=== PATIENT | female | born 1965 | race African-American/Black ===

== ENCOUNTER 2016-08-06 11:16 | Observation (INO) | payer BC ==
[2016-08-06] MEDS ORDERED: ASPIRIN 81 MG TABLET, CHEWABLE PO ONE (11:33)
--- NOTE | 2016-08-06 11:54 | ER Document Report ---
ED Medical Screen (RME) - General Chief Complaint: Shortness Of Breath Stated Complaint: SHORTNESS OF BREATH Time Seen by Provider: 08/06/16 11:44 Mode of Arrival: Ambulatory Information source: Patient Notes: This is a 51-year-old -[place] female with a past medical history significant for diabetes, hypertension, CHF, fibromyalgia who presents with shortness of breath. She states that she felt well upon awakening this morning but at about 9:00 while at work she felt her "heart racing" and felt short of breath. She denies any chest pain. She continues to feel her heart "racing" and still feels short of breath with exertion or with speaking. She states this feels somewhat similar to her prior episodes of CHF. I have greeted and performed a rapid initial assessment of this patient. A comprehensive ED assessment and evaluation of the patient, analysis of test results and completion of the medical decision making process will be conducted by additional ED providers. TRAVEL OUTSIDE OF THE [place] IN LAST 30 DAYS: No - Related Data Allergies/Adverse Reactions: No Known Allergies Allergy (Verified 08/06/16 11:35) Past Medical History - Past Medical History Cardiac Medical History: Denies: Hx Coronary Artery Disease, Hx Heart Attack, Hx Hypertension Pulmonary Medical History: Denies: Hx Asthma, Hx Bronchitis, Hx COPD, Hx Pneumonia Neurological Medical History: Denies: Hx Cerebrovascular Accident, Hx Seizures Renal/ Medical History: Denies: Hx Peritoneal Dialysis Musculoskeltal Medical History: Reports Hx Arthritis - knee Past Surgical History: Denies: Hx Hysterectomy - Immunizations Hx Diphtheria, Pertussis, Tetanus Vaccination: No Physical Exam - Vital signs Vitals: Temp Pulse Resp BP Pulse Ox 97.4 F 120 H 20 120/55 L 97 08/06/16 11:33 08/06/16 11:33 08/06/16 11:33 08/06/16 11:33 08/06/16 11:33 - General General appearance: Appears well In distress: None Notes: Mild conversational dyspnea - Respiratory Respiratory status: No respiratory distress. No: Tachypnea Breath sounds: Normal. No: Rales, Rhonchi, Wheezing - Cardiovascular Rhythm: Irregularly irregular Heart sounds: S1 appreciated, S2 appreciated Murmur: No Course - Vital Signs Vital signs: Temp Pulse Resp BP Pulse Ox 97.4 F 120 H 20 120/55 L 97 08/06/16 11:33 08/06/16 11:33 08/06/16 11:33 08/06/16 11:33 08/06/16 11:33
[2016-08-06 12:16] LABS: ABSOLUTE BASOPHILS # (AUTO) 0.1 10^3/uL (0.0-0.2); ABSOLUTE EOSINOPHILS # (AUTO) 0.2 10^3/uL (0.0-0.6); ABSOLUTE LYMPHOCYTES (AUTO) 3.3 10^3/uL (0.5-4.7); ABSOLUTE MONOCYTES (AUTO) 0.6 10^3/uL (0.1-1.4); ABSOLUTE NEUT (AUTO) 5.2 10^3/uL (1.7-8.2); EOSINOPHILS % (AUTO) 2.4 % (0-6); HEMOGLOBIN 13.1 g/dL (12.0-15.5); HGB HCT DIFFERENCE 0.3; LYMPHOCYTES % (AUTO) 35.1 % (13-45); MEAN CORPUSCULAR HEMOGLOBIN 30.4 pg (27.0-33.4); MEAN CORPUSCULAR HGB CONC 33.6 g/dL (32.0-36.0); MEAN CORPUSCULAR VOLUME 91 fl (80-97); MONOCYTES % (AUTO) 6.7 % (3-13); RED BLOOD COUNT 4.31 10^6/uL (3.72-5.28); RED CELL DISTRIBUTION WIDTH 14.4 % (11.5-14.0); SEGMENTED NEUTROPHILS % (AUTO) 54.8 % (42-78); WHITE BLOOD COUNT 9.4 10^3/uL (4.0-10.5)
[2016-08-06 12:28] LABS: APPEARANCE,URINE SLIGHTLY-CLOUDY; BILIRUBIN,URINE NEGATIVE (NEGATIVE); GLUCOSE, URINE NEGATIVE (NEGATIVE); KETONES,URINE NEGATIVE (NEGATIVE); LEUKOCYTE ESTERASE,URINE NEGATIVE (NEGATIVE); NITRITE,URINE NEGATIVE (NEGATIVE); PROTEIN,URINE NEGATIVE (NEGATIVE); URINE SPECIFIC GRAVITY 1.009; UROBILINOGEN,URINE NEGATIVE mg/dL (<2.0)
[2016-08-06 12:32] LABS: ALANINE AMINOTRANSFERASE 24 U/L (9-52); ALBUMIN 3.7 g/dL (3.5-5.0); ALKALINE PHOSPHATASE 72 U/L (38-126); ANION GAP 9 (5-19); ASPARTATE AMINO TRANSFERASE 19 U/L (14-36); BILIRUBIN,DIRECT 0.3 mg/dL (0.0-0.4); BILIRUBIN,TOTAL 0.5 mg/dL (0.2-1.3); BLOOD UREA NITROGEN 14 mg/dL (7-20); CALCIUM 9.6 mg/dL (8.4-10.2); CARBON DIOXIDE 30 mmol/L (22-30); CHLORIDE 102 mmol/L (98-107); CREATINE KINASE 101 U/L (30-135); CREATININE RESULT 0.84 mg/dL (0.52-1.25); GLUCOSE 160 mg/dL (75-110); POTASSIUM 3.7 mmol/L (3.6-5.0); SODIUM 140.6 mmol/L (137-145); TOTAL PROTEIN 7.1 g/dL (6.3-8.2)
--- NOTE | 2016-08-06 12:44 | RADIOLOGY REPORT (SQ) ---
EXAM DESCRIPTION: CHEST SINGLE VIEW COMPLETED DATE/TIME: 08/06/2016 12:37 pm REASON FOR STUDY: dyspnea COMPARISON: None. EXAM PARAMETERS: NUMBER OF VIEWS: One view. TECHNIQUE: Single frontal radiographic view of the chest acquired. RADIATION DOSE: NA LIMITATIONS: None. FINDINGS: LUNGS AND PLEURA: No opacities, masses or pneumothorax. No pleural effusion. MEDIASTINUM AND HILAR STRUCTURES: No masses. Contour normal. HEART AND VASCULAR STRUCTURES: Heart normal in size. Normal vasculature. BONES: No acute findings. HARDWARE: None in the chest. OTHER: No other significant finding. IMPRESSION: NO ACUTE RADIOGRAPHIC FINDING IN THE CHEST. TECHNICAL DOCUMENTATION: JOB ID: [id number]
[2016-08-06 12:45] LABS: CREATINE KINASE MB 1.12 ng/mL (<4.55)
[2016-08-06 12:48] LABS: TROPONIN I < 0.012 ng/mL
--- NOTE | 2016-08-06 13:24 | ER Document Report ---
ED Cardiac - General Chief Complaint: Shortness Of Breath Stated Complaint: SHORTNESS OF BREATH Time Seen by Provider: 08/06/16 11:44 Mode of Arrival: Ambulatory Notes: Patient is a 51-year-old female presents emergency department complaining of shortness of breath and palpitations of sudden onset at 1030 this morning. This lasted less than an hour. Patient states that she was at work regarding home on August she had sudden onset of palpitations with associated shortness of breath. She denies any chest pain, left arm pain, jaw pain, back pain, nausea, vomiting, heartburn. Patient states that she has a history of the symptoms previously when it was a flareup of her congestive heart failure. Patient denies any other recent URI symptoms, fever, chills. Primary care physician is Dr. Gamez Past medical history significant for hypertension, congestive heart failure, diabetes, osteoarthritis Social history: Denies any history of tobacco use, alcohol or drug use. Denies any family history of NE prior to 49 TRAVEL OUTSIDE OF THE [place] IN LAST 30 DAYS: No - Related Data Allergies/Adverse Reactions: No Known Allergies Allergy (Verified 08/06/16 11:35) Past Medical History - General Information source: Patient - Social History Smoking Status: Never Smoker Chew tobacco use (# tins/day): No Frequency of alcohol use: None Drug Abuse: None Family History: denies: CAD, CVA Patient has suicidal ideation: No Patient has homicidal ideation: No - Past Medical History Cardiac Medical History: Denies: Hx Coronary Artery Disease, Hx Heart Attack, Hx Hypertension Pulmonary Medical History: Denies: Hx Asthma, Hx Bronchitis, Hx COPD, Hx Pneumonia Neurological Medical History: Denies: Hx Cerebrovascular Accident, Hx Seizures Renal/ Medical History: Denies: Hx Peritoneal Dialysis Musculoskeltal Medical History: Reports Hx Arthritis - knee Past Surgical History: Denies: Hx Hysterectomy - Immunizations Hx Diphtheria, Pertussis, Tetanus Vaccination: No Review of Systems - Review of Systems Constitutional: No symptoms reported Cardiovascular: See HPI Respiratory: See HPI Gastrointestinal: No symptoms reported -: Yes All other systems reviewed and negative Physical Exam - Vital signs Vitals: Temp Pulse Resp BP Pulse Ox 97.4 F 120 H 20 120/55 L 97 08/06/16 11:33 08/06/16 11:33 08/06/16 11:33 08/06/16 11:33 08/06/16 11:33 - Notes Notes: PHYSICAL EXAM GENERAL: Alert, interacts well. HEAD: Normocephalic, atraumatic. EYES: Pupils equal, round, and reactive to light. Extraocular movements intact. ENT: Oral mucosa moist, tongue midline. NECK: Full range of motion. Supple. Trachea midline. LUNGS: Clear to auscultation bilaterally, no wheezes, rales, or rhonchi. No respiratory distress. HEART: Regular rate and rhythm. No murmurs, gallops, or rubs. ABDOMEN: Soft, nondistended, nontender. No guarding, rebound, or rigidity.. Bowel sounds present in all 4 quadrants. EXTREMITIES: Moves all 4 extremities spontaneously. No edema, radial and dorsalis pedis pulses 2/4 bilaterally. No cyanosis. NEUROLOGICAL: Alert and oriented x4. Normal speech. PSYCH: Normal affect, normal mood. SKIN: Warm, dry, normal turgor. No rashes or lesions noted. Course - Re-evaluation Re-evalutation: 08/06/16 13:27 Patient is very well in appearance, vitals within normal limits. Moderate clinical suspicion for ACS given clinical history, exam, EKG evidence of LVH and occasional PVC's without ST segment elevations or depressions, and negative initial troponin. HEART score is 4. PE seems unlikely given clinical history, absence of tachycardia or dyspnea. Well's score of 0. D-dimer negative. CXR without evidence of pneumothorax or pneumonia. No widened mediastinum. Aortic dissection also seems unlikely given history, symmetric pulses, CXR, and vitals. At this time will admit for observation under Izaiah Christensen. Per [facility] protocol and guidelines, this case was discussed with supervising physician Dr. Karen Hinojosa prior to admission - Vital Signs Vital signs: Temp Pulse Resp BP Pulse Ox 97.4 F 120 H 18 120/68 97 08/06/16 11:33 08/06/16 11:33 08/06/16 13:01 08/06/16 13:01 08/06/16 13:01 - Laboratory Result Diagrams: 08/06/16 12:05 08/06/16 12:05 Laboratory results interpreted by me: 08/06/16 08/06/16 12:05 12:05 RDW 14.4 H Glucose 160 H - Diagnostic Test Radiology reviewed: Image reviewed, Reports reviewed - EKG Interpretation by Me EKG shows normal: Sinus rhythm Rate: Normal Rhythm: PVC's Discharge - Discharge Clinical Impression: Palpitations Condition: Stable Disposition: ADMITTED OBSERVATION [facility] Admitted: Telemetry Referrals: ANDIE GAMEZ MD [Primary Care Provider] - Follow up as needed
[2016-08-06] MEDS ORDERED: POTASSIUM CHLORIDE 10 MEQ TABLET.SA PO ONE (15:18)
[2016-08-06] MEDS ORDERED: FUROSEMIDE INJ/PF 40 MG/4 ML SDV IV ONE (15:18)
--- NOTE | 2016-08-06 16:33 | HISTORY AND PHYSICAL E ---
History and Physical NAME: OLNEA TELLEZ : 1965 AGE: 51Y ADMITTED: 08/06/2016 ROOM: 533 PRIMARY CARE PROVIDER: Dr. Lema CHIEF COMPLAINT: Shortness of breath. HISTORY OF PRESENT ILLNESS: The patient is a 51-year-old -[place] female with a past medical history of hypertension and diabetes mellitus type 2. The patient presented to the emergency department with a chief complaint of shortness of breath. According to the patient, she was at work today when she developed a sudden onset of shortness of breath to the point that she felt she could not complete sentences. The patient stated that this was positional and when she stood up, her symptoms were better. With minimal exertion she became short of breath. The patient also noted that she feels "bloated" in her abdomen and feels that she may have fluid there. According to the patient, she had a Mirena IUD placed due to menorrhagia; however, she still has symptoms of monthly menstruation without menstrual flow, however, she felt this was more bloating than normal for her. The patient feels that this is actual "fluid" in her stomach. The patient denies any nausea or vomiting. No diarrhea, dizziness, or chest pain. No fever or chills. The patient admits to some heart palpitations when she is very winded. The patient presented to the emergency department where she was given aspirin. EKG was essentially unremarkable; however, the patient was noted to be tachypneic but was not hypoxic. The patient did have a chest x-ray which did not have any acute radiographic findings within the chest. The patient was found to be normotensive and was slightly tachycardiac on presentation. The patient does give a history of possible "fluid around the heart." A number of years ago when she was first diagnosed with hypertension, the patient stated that she did not realize that her blood pressure was very high until fluid had build around her heart. Since that time, the patient states that she has been completely compliant with her medications and has followed up regularly; however, she has not been evaluated by Cardiology nor had a stress test. The patient also makes mention that she took Fen-Phen in the 90s and has not had any imaging of her heart to her knowledge. Given the patient's risk factors, she was referred to the hospitalist for observation and management. PAST MEDICAL HISTORY: 1. Hypertension. 2. Diabetes mellitus type 2. 3. Menorrhagia which is well controlled with Mirena. 4. Obesity with a BMI of 40. 5. Possible episode of heart failure. PAST SURGICAL HISTORY: 1. Breast reduction. 2. Tubal ligation. 3. Arthroscopic knee surgery. ALLERGIES: No known drug allergies. HOME MEDICATIONS: 1. Hydrochlorothiazide 25 mg p.o. daily. 2. Mirena IUD. 3. Lisinopril 40 mg daily. 4. Metformin 750 mg p.o. daily. 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 The patient does reside at home with her . The patient denies any history of tobacco use. No history of alcohol or illicit drug use. The patient's surrogate decision maker would be her , Javad, who may be reached at [phone]. FAMILY MEDICAL HISTORY: The patient's mother is alive with hypertension. The patient's father is also alive with diabetes and hypertension. The patient has 3 siblings, all of which are hypertensive. Two others are also diabetic. The patient has 2 sons, both of which are healthy. The patient states the only history of heart disease is her paternal grandmother and paternal aunt, both had coronary artery disease. REVIEW OF SYSTEMS: CONSTITUTIONAL: The patient denies any fevers, chills, no dizziness, weakness, loss of appetite. SKIN: The patient denies any diaphoresis, rash, bruising, itching. HEENT: Denies any vision changes, hearing loss, nasal drainage, sore throat and headache. CARDIOVASCULAR: The patient denies any chest pain. Positive for shortness of breath, edema, and palpitations. RESPIRATORY: Denies any cough, sputum production, or hemoptysis. GASTROINTESTINAL: The patient denies any nausea, vomiting, diarrhea, abdominal pain, hematemesis, constipation, melena, hematochezia. No epigastric pain. GENITOURINARY: Denies any hematuria, pyuria, or dysuria. MUSCULOSKELETAL: Denies any acute or chronic joint pains. NEUROLOGICAL: Denies any seizures, tremors, loss of consciousness. HEMATOLOGICAL: Denies any maryuri bleeding. ENDOCRINE: Denies any recent weight changes. PSYCHIATRIC: The patient denies suicidal or homicidal ideation. GYNECOLOGICAL: The patient states menorrhagia has resolved with IUD placement. PHYSICAL EXAMINATION: GENERAL: On examination, the patient is a well-developed, well-nourished, very pleasant 51-year-old -[place] female who is awake, alert, and oriented to person, place, time, and situation. She is verbal, conversational, ambulatory, and does not appear to be in any acute distress. VITAL SIGNS: Temperature 98.4, pulse 59, respirations 20, blood pressure 122/56, oxygen saturation is 98% on room air. SKIN: Warm and dry. No rash. She is not diaphoretic. HEENT: Pupils equal, round, reactive to light and accommodation. Conjunctivae are pink. Sclerae is not icterus. No masses or lesions. Trachea is midline. Neck is supple. The patient has good dentition. No palpable lymphadenopathy or thyromegaly. The patient does appear to have a faint JVD to the level of the right clavicle. CARDIOVASCULAR: Heart is regular. The patient does have a 2/6 systolic murmur at the left sternal border. No rub. CHEST: Clear, symmetrical, unlabored. ABDOMEN: Firm. No area of focal tenderness. No distinct fluid wave. Bowel sounds are present. No palpable organomegaly. BACK: No CVA tenderness or sacral edema. EXTREMITIES: No clubbing, cyanosis, edema, or peripheral signs of embolization. Posterior pedal pulses noted bilaterally. PSYCHIATRIC: Appropriate affect. Pleasant mood. NEUROLOGIC: Cranial nerves II-XII are grossly intact. DIAGNOSTICS: Lab values are as follows: Hematology obtained on 08/06/2016: WBCs are 9.4, hemoglobin is 13.1, hematocrit is 39.0, platelet count is 295,000. Coagulation obtained on 08/06/2016: D-dimer is 0.27. Chemistry obtained on 08/06/2016: Sodium is 140, potassium is 2.7, chloride is 102, carbon dioxide 30, BUN 14, creatinine is 0.84, glucose 160, calcium is 9.6, bilirubin is 0.5, AST 19, ALT 24, alk phos 72, CK 101, CK-MB 1.12. Troponin is 0.012. BNP is 148. Total protein is 7.1. Albumin 3.7. Urinalysis obtained on 08/06/2016: Color yellow, appearance slightly cloudy, pH 6.0, specific gravity 1.009, protein negative, glucose negative, ketones negative, occult blood moderate, nitrate negative, bilirubin negative, urobilinogen negative, leukocyte esterase negative, WBC 1, RBC 1, epithelial squamous cells 6, mucous rare, ascorbic acid negative. EKG obtained on 08/06/2016 reveals sinus rhythm with sinus rhythm with a PVC with evidence of left ventricular hypertrophy. Chest x-ray obtained on 08/06/2016: No acute radiographic finding of the chest. IMPRESSION AND PLAN: 1. Dyspnea. Do have high suspicion for possible underlying vascular congestion versus heart failure given the patient's history and clinical presentation. Will diurese with IV Lasix and supplement potassium. Will obtain echocardiogram given the patient's murmur and history of Fen-Phen and will follow. Will obtain serial cardiac enzymes and follow. 2. Diabetes mellitus type 2. Glucose has been good control. Will obtain Accu-Cheks and sliding scale coverage. Will hold metformin in the event the patient needs catheterization. 3. Hypertension. The patient's blood pressures have been in a good range. Will continue the patient's home medications but will hold hydrochlorothiazide given that the patient is being diuresed. 4. DVT prophylaxis. Will add subcutaneous heparin. DISPOSITION: The patient is a FULL CODE. Pending patient's symptomatology and diagnostic findings, will reevaluate in the a.m. The patient will be observed in continuous telemetry as the patient's expected length of stay will not surpass 2 midnights. Time spent on this of admission including assessment, plan, physical examination, patient education is 45 minutes. DICTATING PHYSICIAN: GEOFFREY FRIAS NP [id number] PHY#: [id number] ID: [id number] JOB#: [id number] ACCT: [id number] cc:GEOFFREY FRIAS NP >
[2016-08-06] MEDS ORDERED: DEXTROSE 40% GEL 15 GM TUBE PO PRN ×2 (17:00)
[2016-08-06] MEDS ORDERED: DEXTROSE 50%-WATER 25 GM/50 ML DISP.SYRIN IV PRN ×2 (17:00)
[2016-08-06] MEDS ORDERED: GLUCAGON,HUMAN RECOMB 1 MG INJ IM PRN (17:00)
[2016-08-06] MEDS ORDERED: INSULIN LISPRO 100 UNIT/ML 3 ML VIAL SUBCUT PRN (17:00)
[2016-08-06] MEDS: LANSOPRAZOLE 30 MG TAB.RAP.DR PO SCH (18:00)
[2016-08-06] MEDS: HEPARIN SOD (PORCINE) 5,000 UNIT/ML 1 ML SYRINGE SUBCUT SCH ×2 (18:03→21:58)
[2016-08-06] MEDS: ATORVASTATIN CALCIUM 40 MG TABLET PO SCH (21:58)
[2016-08-07] MEDS: HEPARIN SOD (PORCINE) 5,000 UNIT/ML 1 ML SYRINGE SUBCUT SCH ×3 (05:48→21:49)
[2016-08-07] MEDS: LANSOPRAZOLE 30 MG TAB.RAP.DR PO SCH ×2 (05:48→17:15)
[2016-08-07 06:22] LABS: CHOLESTEROL 136.53 mg/dL (0-200); Direct HDL 30 mg/dL (>40); TRIGLYCERIDES 196 mg/dL (<150)
[2016-08-07 06:33] LABS: DIRECT LDL 67 mg/dL (<100)
[2016-08-07 06:35] LABS: VLDL CHOLESTEROL 39.2 mg/dL (10-31)
[2016-08-07] MEDS ORDERED: FUROSEMIDE INJ/PF 40 MG/4 ML SDV IV ONE (09:45)
[2016-08-07] MEDS ORDERED: POTASSIUM CHLORIDE 10 MEQ TABLET.SA PO ONE (09:45)
[2016-08-07] MEDS: LISINOPRIL 10 MG TABLET PO SCH (09:55)
[2016-08-07] MEDS: ASPIRIN 81 MG TABLET, CHEWABLE PO SCH (09:55)
[2016-08-07] MEDS: METFORMIN HCL 500 MG TABLET PO SCH (09:56)
[2016-08-07] MEDS ORDERED: LEVONORGESTREL IY SCH (10:00)
[2016-08-07] MEDS ORDERED: (PENDING PHARMACY ID) (Lisinopril [Lisinopril] 40 MG) PO SCH (10:00)
--- NOTE | 2016-08-07 10:06 | EKG REPORT ---
SEVERITY:- NORMAL ECG - SINUS RHYTHM : Confirmed by: Miguel Ángel Rhoades 07-Aug-2016 10:05:15
--- NOTE | 2016-08-07 10:06 | EKG REPORT ---
SEVERITY:- ABNORMAL ECG - SINUS RHYTHM VENTRICULAR PREMATURE COMPLEX PROBABLE LEFT VENTRICULAR HYPERTROPHY : Confirmed by: Miguel Ángel Rhoades 07-Aug-2016 10:05:21
--- NOTE | 2016-08-07 16:39 | PROGRESS NOTE E ---
Progress Note NAME: OLENA TELLEZ : 1965 AGE: 51Y DATE: 08/07/2016 ROOM: 419 SUBJECTIVE: The patient is lying in bed and she states that she still gets winded. The patient does admit to frequent urination. The patient still complains of bloating sensation at the top of her abdomen. Patient denies any nausea, vomiting, or diarrhea. No dizziness or chest pain. The patient has been afebrile. Blood pressures have been in a good range. Patient does not voice any other concerns at this time. REVIEW OF SYSTEMS: Rest of the review of systems negative. MEDICATIONS: Have been reviewed. OBJECTIVE: GENERAL: The patient is a 51-year-old -[place] female who is awake, alert, and oriented to person, place, time, and situation. She is verbal, conversational, and does not appear to be in any acute distress. VITAL SIGNS: Temperature 98.6, pulse 76, respirations 20, blood pressure is 104/64, oxygen saturation is 98% on room air. SKIN: Warm and dry. No rash. Not diaphoretic. HEENT: Pupils equal, round, reactive to light and accommodation. Conjunctivae are pink. NECK: There is no JVP. CARDIOVASCULAR: Heart is regular. There is no rub. CHEST: Diminished, clear, symmetrical. ABDOMEN: Soft, nontender, nondistended. Bowel sounds are present. No palpable organomegaly. BACK: No CVA tenderness or sacral edema. EXTREMITIES: No clubbing, cyanosis, edema. PSYCHIATRIC: Appropriate affect. Pleasant mood. DIAGNOSTICS: Lab values are as follows: Chemistry obtained on 08/07/2016: Triglycerides 196, cholesterol 136, LDL 67, VLDL 39, HDL is 30, glucose 129. Troponins 0.012. IMPRESSION AND PLAN: 1. DYSPNEA. Continue to have suspicion for underlying vascular congestion. Currently awaiting echocardiogram. The patient did respond well to IV Lasix. Will give yet another dose of this and supplement potassium. Is concerning because the patient does have a history of Fen-Phen use. Will continue to monitor. Repeat chemistries in the a.m. 2. DIABETES MELLITUS TYPE 2. The patient does have good glycemic control. Will continue current medications. 3. HYPERTENSION. Blood pressures have been in a good range. Will continue current medications but will hold hydrochlorothiazide given that the patient is being diuresed. 4. DVT PROPHYLAXIS. Will continue subcutaneous heparin. DISPOSITION: The patient is a FULL CODE. Pending patient's symptomatology and diagnostic findings, will reevaluate in the a.m. Time spent on this followup including assessment, plan, physical examination, patient education, and specialty collaboration is 30 minutes. DICTATING PHYSICIAN: GEOFFREY FRIAS NP [id number] PHY#: [id number] ID: [id number] JOB#: [id number] ACCT: [id number] cc: >
[2016-08-07] MEDS: ATORVASTATIN CALCIUM 40 MG TABLET PO SCH (21:49)
--- NOTE | 2016-08-07 21:50 | XCELERA REPORT ---
[address] [address] Transthoracic Echocardiogram Report Name: OLENA TELLEZ Age: 51 yrs Gender: Female : 1965 Patient Status: Inpatient Patient Location: 5\S\533\S\A Study Date: 08/07/2016 09:19 AM Height: 64 in Weight: 233 lb BSA: 2.1 m2 Procedure: A two-dimensional transthoracic echocardiogram with color flow and Doppler was performed. The study was technically difficult with many images being suboptimal in quality. Reason For Study: EDEMA / DYSPNEA History: EDEMA / DYSPNEA. Ordering Physician: GEOFFREY FRIAS Performed By: Lay Suarez Interpretation Summary The left ventricle is normal in size. There is normal left ventricular wall thickness. LV EF is 60% Left ventricular systolic function is normal. Doppler measurements suggest normal left ventricular diastolic function The left ventricular wall motion is normal. There is no thrombus. The left atrial size is normal. There is no evidence of mitral valve prolapse. There is no mitral valve stenosis. There is a trace amount of mitral regurgitation There is no aortic valve stenosis There is no LVOT obstruction. No aortic regurgitation is present. There is no tricuspid stenosis. Probably no TR.Unable to calculate RVSP due to insufficient TR jet. There is no pericardial effusion. MMode/2D Measurements \T\ Calculations RVDd: 3.2 cm LVIDd: 4.7 cm FS: 31.8 % Ao root diam: 2.5 cm IVSd: 0.88 cm LVIDs: 3.2 cm EDV(Teich): 100.2 ml LVPWd: 0.83 cm ESV(Teich): 40.2 ml Ao root area: 4.7 cm2 EF(Teich): 59.9 % LA dimension: 3.3 cm Doppler Measurements \T\ Calculations MV E max rosalio: MV P1/2t max rosalio: Ao V2 max: LV V1 max P.4 cm/sec 85.9 cm/sec 139.0 cm/sec 5.4 mmHg MV A max rosalio: MV P1/2t: 64.7 msec Ao max PG: LV V1 max: 66.6 cm/sec 7.7 mmHg 116.0 cm/sec MV E/A: 1.3 MVA(P1/2t): 3.4 cm2 MV dec slope: 388.9 cm/sec2 MV dec time: 0.21 sec PA V2 max: PI end-d rosalio: 88.4 cm/sec 114.4 cm/sec PA max P.1 mmHg Left Ventricle The left ventricle is normal in size. There is normal left ventricular wall thickness. LV EF is 60%. Left ventricular systolic function is normal. Doppler measurements suggest normal left ventricular diastolic function. The left ventricular wall motion is normal. There is no thrombus. There is no ventricular septal defect visualized. Right Ventricle The right ventricle is not well visualized secondary to technical limitations. Atria The right atrium is normal. The left atrial size is normal. The interatrial septum is intact with no evidence for an atrial septal defect. Mitral Valve There is no evidence of mitral valve prolapse. There is no vegetation seen on the mitral valve. There is no mitral valve stenosis. There is a trace amount of mitral regurgitation. Aortic Valve There is no aortic valvular vegetation. There is no aortic valve stenosis. There is no LVOT obstruction. No aortic regurgitation is present. Tricuspid Valve There is no tricuspid stenosis. Probably no TR.Unable to calculate RVSP due to insufficient TR jet. Pulmonic Valve There is no pulmonic valvular stenosis. There is a trace amount of pulmonic regurgitation. Great Vessels The aortic root is normal size. Effusions There is no pericardial effusion. : GEFOFREY FRIAS > Renae Stover
[2016-08-08 01:51] LABS: ABSOLUTE BASOPHILS # (AUTO) 0.1 10^3/uL (0.0-0.2); ABSOLUTE EOSINOPHILS # (AUTO) 0.2 10^3/uL (0.0-0.6); ABSOLUTE LYMPHOCYTES (AUTO) 3.2 10^3/uL (0.5-4.7); ABSOLUTE MONOCYTES (AUTO) 0.7 10^3/uL (0.1-1.4); ABSOLUTE NEUT (AUTO) 4.8 10^3/uL (1.7-8.2); BASOPHILS % (AUTO) 1.1 % (0-2); EOSINOPHILS % (AUTO) 2.3 % (0-6); HEMATOCRIT 39.3 % (36.0-47.0); HGB HCT DIFFERENCE -0.3; LYMPHOCYTES % (AUTO) 35.4 % (13-45); MEAN CORPUSCULAR HEMOGLOBIN 29.9 pg (27.0-33.4); MEAN CORPUSCULAR HGB CONC 33.1 g/dL (32.0-36.0); MEAN CORPUSCULAR VOLUME 90 fl (80-97); MONOCYTES % (AUTO) 7.7 % (3-13); RED BLOOD COUNT 4.36 10^6/uL (3.72-5.28); RED CELL DISTRIBUTION WIDTH 14.4 % (11.5-14.0); SEGMENTED NEUTROPHILS % (AUTO) 53.5 % (42-78)
[2016-08-08 01:57] LABS: ANION GAP 11 (5-19); BLOOD UREA NITROGEN 17 mg/dL (7-20); CALCIUM 9.6 mg/dL (8.4-10.2); CARBON DIOXIDE 26 mmol/L (22-30); CHLORIDE 105 mmol/L (98-107); CREATININE RESULT 0.75 mg/dL (0.52-1.25); GLUCOSE 177 mg/dL (75-110); MAGNESIUM 1.8 mg/dL (1.6-2.3); POTASSIUM 3.9 mmol/L (3.6-5.0); SODIUM 141.6 mmol/L (137-145)
[2016-08-08] MEDS: LANSOPRAZOLE 30 MG TAB.RAP.DR PO SCH (05:30)
[2016-08-08] MEDS: HEPARIN SOD (PORCINE) 5,000 UNIT/ML 1 ML SYRINGE SUBCUT SCH (05:30)
[2016-08-08 06:46] LABS: ANION GAP 10 (5-19); BLOOD UREA NITROGEN 18 mg/dL (7-20); CALCIUM 9.5 mg/dL (8.4-10.2); CARBON DIOXIDE 27 mmol/L (22-30); CHLORIDE 103 mmol/L (98-107); CREATININE RESULT 0.78 mg/dL (0.52-1.25); GLUCOSE 179 mg/dL (75-110); MAGNESIUM 1.9 mg/dL (1.6-2.3); POTASSIUM 4.3 mmol/L (3.6-5.0); SODIUM 140.3 mmol/L (137-145)
--- NOTE | 2016-08-08 08:59 | EKG REPORT ---
SEVERITY:- ABNORMAL ECG - SINUS RHYTHM PROBABLE LEFT VENTRICULAR HYPERTROPHY : Confirmed by: Miguel Ángel Rhoades 08-Aug-2016 08:58:28
[2016-08-08] MEDS: METFORMIN HCL 500 MG TABLET PO SCH (09:08)
[2016-08-08] MEDS: LISINOPRIL 10 MG TABLET PO SCH (09:08)
[2016-08-08] MEDS: ASPIRIN 81 MG TABLET, CHEWABLE PO SCH (09:08)
[2016-08-08 11:40] VITALS: BP 117/69
--- NOTE | 2016-08-09 16:58 | DISCHARGE SUMMARY E ---
Discharge Summary NAME: OLENA TELLEZ : 1965 AGE: 51Y ADMITTED: 08/06/2016 DISCHARGED: 08/08/2016 CODE STATUS: Full code. PRIMARY CARE PROVIDER: Dr. Lema. DISCHARGE DIAGNOSES: 1. Dyspnea, most likely due to poor activity intolerance. 2. Diabetes mellitus type 2. 3. Hypertension. 4. Hyperlipidemia. DISCHARGE MEDICATIONS: 1. Ventolin HFA 2 puffs inhalation q.4 hours p.r.n. 2. Aspirin 81 mg p.o. daily. 3. Lipitor 40 mg p.o. at hour of sleep. 4. Lasix 20 mg p.o. q.a.m. 5. Mirena. 6. Lisinopril 20 mg p.o. daily. 7. Glucophage 750 mg p.o. daily. 8. Lopressor 12.5 mg p.o. q.12 hours. ACTIVITY: As tolerated. DIET: Diabetic, cardiac. HISTORY OF THE PRESENT ILLNESS: The patient is a 51-year-old -[place] female with a past medical history of hypertension and diabetes. The patient presented to the emergency department with a chief complaint of shortness of breath. According to the patient she had been at work on the day of presentation with shortness of breath and so she could not complete sentences. The patient stated that her symptoms were mainly positional and when she stood up or participate in activities the patient noted feeling bloated in her abdomen and feels like she may have free fluid there. According to the patient she had a Mirena IUD placed due to menorrhagia. However, she still has symptoms of menstruation without menstrual flow, that it felt she was more bloated than usual for her. The patient feels that she has fluid in her stomach. The patient denied any nausea, vomiting, diarrhea, dizziness, chest pain. No fevers, chills. The patient admitted to some heart palpitation especially when she felt winded. EKG was essentially unremarkable. The patient was noted to be tachypneic, but not hypoxic. The patient's chest x-ray did not reveal any acute radiographic findings and the patient was referred to the hospital for admission and management. HOSPITAL COURSE: The patient was admitted to continuous telemetry unit. Serial cardiac enzymes were obtained, all of which were not suggestive. The patient's EKG did not reveal any changes and the patient had no evidence on the air sampling and monitoring other than a brief episode of asymptomatic bigeminy. The patient was started on low dose metoprolol and blood pressure did tolerate this. The patient underwent an echocardiogram which was essentially unremarkable. However, the patient was diuresed with IV Lasix given the symptoms of fluid and her abdomen. This did improve. The patient's chemistries were not suggestive of any hepatic anomaly. The patient overall dose admit to being extremely fatigued and "stressed out." The patient is quite eager for discharge with the agreement she will followup with both cardiology and primary care provider. DIAGNOSTICS: Lab values are as follows, hematology obtained on 08/08/2016; WBC 9.0, hemoglobin 13.0, hematocrit 39.3, platelet count is 274,000. Coagulation panel 08/06/2016; D-dimer is 0.27. Chemistry obtained on 08/06/2016; sodium 140, potassium 2.7, chloride is 102, carbon dioxide 30, BUN 14, creatinine is 0.84, calcium is 9.6, bilirubin 0.5, AST 19, ALT 24, alk-phos 72, CK 101, CK-MB 1.12. Troponin is 0.012. BNP is 148. Total protein is 7.1, albumin 3.7. Triglycerides at 196, cholesterol 136, LDL 67, VLDL is 39, HDL is 30. TSH is 2.38. Urinalysis obtained on 08/06/2016; color yellow, appearance slightly cloudy, pH 6.0, specific gravity 1.009, protein negative, glucose negative, ketones negative, occult blood negative, nitrate negative, bilirubin negative, urobilinogen negative, leukocyte esterase negative, WBC 1, RBC 1, epithelial squamous cells 6, ascorbic acid negative. Chest x-ray obtained on 08/06/2016 reveals no acute radiographic finding of the chest. EKG obtained on 08/07/2016 reveals a normal sinus rhythm. Echocardiogram obtained on 08/07/2016 reveals an EF of 60% with no evidence of diastolic dysfunction. PHYSICAL EXAMINATION: GENERAL: On examination the patient is a well-developed, well-nourished, 51-year-old -[place] female who is awake, alert, and oriented to person, place, time, and situation. She is verbal, conversational, ambulatory and does not appear to be in any acute distress. VITAL SIGNS: Temperature is 97.9, pulse 52, respirations 20, blood pressure is 117/69, oxygen saturation is 99% on room air. SKIN: Warm and dry. No rash. She is not diaphoretic. HEENT: Pupils, equal, round and reactive to light and accommodation. Conjunctivae is pink. NECK: No JVP. CARDIOVASCULAR SYSTEM: Heart is regular, no murmur or rub. CHEST: Clear, symmetrical, unlabored. ABDOMEN: Soft, nontender, nondistended. BACK: No CVA tenderness, sacral edema. EXTREMITIES: No clubbing, cyanosis, or edema. DISCHARGE PLAN: 1. The patient is advised to followup with primary care provider within 1-2 weeks for hospital followup. 2. The patient has been referred to Dr. Rhoades of cardiology for evaluation of dyspnea, possible sleep apnea, as well as obesity. TIME SPENT: On this discharge including assessment and plan, physical examination, and patient education is 25 minutes. DICTATING PHYSICIAN: GEOFFREY FRIAS NP [id number] PHY#: [id number] ID: [id number] JOB#: [id number] ACCT: [id number] cc:ARMEN ANDREW M.D. GEOFFREY FRIAS NP >
== END 2016-08-08 12:12 | disposition home or self-care (01) ==
LOC: ER 11:16 → EH 13:27 → UNDOADMOB 13:54 → 5 14:27 → 4W 08-07 15:45
PROVIDERS: ADMIT Internal Medicine; ATTEND Internal Medicine
DX: R06.00 Dyspnea, unspecified (principal); E11.9 Type 2 diabetes mellitus without complications; I10 Essential (primary) hypertension; E78.5 Hyperlipidemia, unspecified; R14.0 Abdominal distension (gaseous); Z97.5 Presence of (intrauterine) contraceptive device; R53.83 Other fatigue; R00.0 Tachycardia, unspecified; F43.9 Reaction to severe stress, unspecified; R01.1 Cardiac murmur, unspecified; E66.9 Obesity, unspecified; R35.0 Frequency of micturition; Z68.41 Body mass index [BMI] 40.0-44.9, adult; Z98.51 Tubal ligation status; Z79.84 Long term (current) use of oral hypoglycemic drugs; Z79.899 Other long term (current) drug therapy; Z82.49 Family history of ischemic heart disease and other diseases of the circulatory system
CPT/HCPCS: 93005 ×2; 99285; 36415 ×3; 82553; 82962 ×3; 82550; 83735; 84443; 85025 ×2; 80048; 80053; 81001; 84484 ×3; 85379; 80061; 83880; 93306; 71010; 93010 ×2; G0378 ×4; J1644 ×3; J1940 ×2; J1815; J3490 ×3

== ENCOUNTER 2016-08-19 13:48 | Emergency (ER) | payer BC ==
[2016-08-19] MEDS ORDERED: ASPIRIN 81 MG TABLET, CHEWABLE PO ONE (15:03)
--- NOTE | 2016-08-19 15:09 | ER Document Report ---
ED Medical Screen (RME) - General Chief Complaint: Chest Pain Stated Complaint: SHORTNESS OF BREATH,CHEST PAIN Time Seen by Provider: 08/19/16 14:58 Mode of Arrival: Ambulatory Information source: Patient Notes: This is a 51-year-old female with a history of hypertension, hyperlipidemia, and diabetes who presents for evaluation of chest pain. She states that her chest pain began at about noon today. She states that it was a sharp pain in the left side of her anterior chest. She felt short of breath and nauseated. There was no radiation. Chest pain has now resolved that she still feels short of breath. She states she had similar symptoms a few weeks ago and was admitted here overnight. She states she did not have a stress test during that admission. Her last stress test was 7-8 years ago. I have greeted and performed a rapid initial assessment of this patient. A comprehensive ED assessment and evaluation of the patient, analysis of test results and completion of the medical decision making process will be conducted by additional ED providers. TRAVEL OUTSIDE OF THE [place] IN LAST 30 DAYS: No - Related Data Allergies/Adverse Reactions: No Known Allergies Allergy (Verified 08/19/16 14:01) Past Medical History - Social History Chew tobacco use (# tins/day): No Frequency of alcohol use: None Drug Abuse: None - Past Medical History Cardiac Medical History: Reports: Hx Congestive Heart Failure, Hx Hypertension Denies: Hx Coronary Artery Disease, Hx Heart Attack Pulmonary Medical History: Denies: Hx Asthma, Hx Bronchitis, Hx COPD, Hx Pneumonia Neurological Medical History: Denies: Hx Cerebrovascular Accident, Hx Seizures Renal/ Medical History: Denies: Hx Peritoneal Dialysis Musculoskeltal Medical History: Reports Hx Arthritis Surgical Hx: Negative Past Surgical History: Denies: Hx Hysterectomy - Immunizations Hx Diphtheria, Pertussis, Tetanus Vaccination: No Physical Exam - Vital signs Vitals: Temp Pulse Resp BP Pulse Ox 98.2 F 62 22 H 151/80 H 98 08/19/16 14:01 08/19/16 14:01 08/19/16 14:01 08/19/16 14:01 08/19/16 14:01 Course - Vital Signs Vital signs: Temp Pulse Resp BP Pulse Ox 98.2 F 62 22 H 151/80 H 98 08/19/16 14:01 08/19/16 14:01 08/19/16 14:01 08/19/16 14:01 08/19/16 14:01
[2016-08-19 15:31] LABS: ABSOLUTE BASOPHILS # (AUTO) 0.1 10^3/uL (0.0-0.2); ABSOLUTE EOSINOPHILS # (AUTO) 0.3 10^3/uL (0.0-0.6); ABSOLUTE LYMPHOCYTES (AUTO) 3.6 10^3/uL (0.5-4.7); ABSOLUTE MONOCYTES (AUTO) 0.6 10^3/uL (0.1-1.4); ABSOLUTE NEUT (AUTO) 4.6 10^3/uL (1.7-8.2); BASOPHILS % (AUTO) 1.2 % (0-2); EOSINOPHILS % (AUTO) 3.7 % (0-6); HEMATOCRIT 38.9 % (36.0-47.0); HEMOGLOBIN 12.7 g/dL (12.0-15.5); HGB HCT DIFFERENCE -0.8; LYMPHOCYTES % (AUTO) 38.8 % (13-45); MEAN CORPUSCULAR HEMOGLOBIN 29.7 pg (27.0-33.4); MEAN CORPUSCULAR HGB CONC 32.7 g/dL (32.0-36.0); MEAN CORPUSCULAR VOLUME 91 fl (80-97); MONOCYTES % (AUTO) 6.4 % (3-13); RED BLOOD COUNT 4.28 10^6/uL (3.72-5.28); RED CELL DISTRIBUTION WIDTH 14.2 % (11.5-14.0); SEGMENTED NEUTROPHILS % (AUTO) 49.9 % (42-78); WHITE BLOOD COUNT 9.3 10^3/uL (4.0-10.5)
--- NOTE | 2016-08-19 15:37 | RADIOLOGY REPORT (SQ) ---
EXAM DESCRIPTION: CHEST SINGLE VIEW COMPLETED DATE/TIME: 08/19/2016 3:29 pm REASON FOR STUDY: chest pain COMPARISON: 08/06/2016. EXAM PARAMETERS: NUMBER OF VIEWS: One view. TECHNIQUE: Single frontal radiographic view of the chest acquired. RADIATION DOSE: NA LIMITATIONS: None. FINDINGS: LUNGS AND PLEURA: No opacities, masses or pneumothorax. No pleural effusion. MEDIASTINUM AND HILAR STRUCTURES: No masses. Contour normal. HEART AND VASCULAR STRUCTURES: Heart normal in size. Normal vasculature. BONES: No acute findings. HARDWARE: None in the chest. OTHER: No other significant finding. IMPRESSION: NO ACUTE RADIOGRAPHIC FINDING IN THE CHEST. TECHNICAL DOCUMENTATION: JOB ID: [id number]
[2016-08-19 15:50] LABS: ALANINE AMINOTRANSFERASE 32 U/L (9-52); ALBUMIN 3.9 g/dL (3.5-5.0); ALKALINE PHOSPHATASE 70 U/L (38-126); ANION GAP 11 (5-19); ASPARTATE AMINO TRANSFERASE 17 U/L (14-36); BILIRUBIN,DIRECT 0.2 mg/dL (0.0-0.4); BILIRUBIN,TOTAL 0.7 mg/dL (0.2-1.3); BLOOD UREA NITROGEN 16 mg/dL (7-20); CALCIUM 9.5 mg/dL (8.4-10.2); CARBON DIOXIDE 26 mmol/L (22-30); CHLORIDE 106 mmol/L (98-107); CREATINE KINASE 119 U/L (30-135); CREATININE RESULT 0.76 mg/dL (0.52-1.25); GLUCOSE 102 mg/dL (75-110); POTASSIUM 4.4 mmol/L (3.6-5.0); SODIUM 143.2 mmol/L (137-145)
[2016-08-19 16:08] LABS: CREATINE KINASE MB 1.62 ng/mL (<4.55)
[2016-08-19 16:09] LABS: TROPONIN I < 0.012 ng/mL
--- NOTE | 2016-08-19 18:13 | ER Document Report ---
ED General - General Chief Complaint: Chest Pain Stated Complaint: SHORTNESS OF BREATH,CHEST PAIN Time Seen by Provider: 08/19/16 14:58 Mode of Arrival: Ambulatory TRAVEL OUTSIDE OF THE [place] IN LAST 30 DAYS: No - HPI Patient complains to provider of: Chest pain shortness of breath Notes: Patient coming in for evaluation of chest pain and shortness of breath. Patient was recently admitted and referred to cardiology patient has not follow- up with cardiology at this time. Patient had a negative Homans. Patient states she has been compliant with her medications. Patient denies any fever chills nausea vomiting diarrhea. Patient is a nausea stress patient for chest pain episode earlier this morning currently chest pain-free - Related Data Allergies/Adverse Reactions: No Known Allergies Allergy (Verified 08/19/16 14:01) Past Medical History - General Information source: Patient - Social History Smoking Status: Never Smoker Chew tobacco use (# tins/day): No Frequency of alcohol use: None Drug Abuse: None Family History: Reviewed & Not Pertinent Patient has suicidal ideation: No Patient has homicidal ideation: No - Past Medical History Cardiac Medical History: Reports: Hx Congestive Heart Failure, Hx Hypertension Denies: Hx Coronary Artery Disease, Hx Heart Attack Pulmonary Medical History: Denies: Hx Asthma, Hx Bronchitis, Hx COPD, Hx Pneumonia Neurological Medical History: Denies: Hx Cerebrovascular Accident, Hx Seizures Renal/ Medical History: Denies: Hx Peritoneal Dialysis Musculoskeltal Medical History: Reports Hx Arthritis Surgical Hx: Negative Past Surgical History: Denies: Hx Hysterectomy - Immunizations Hx Diphtheria, Pertussis, Tetanus Vaccination: No Review of Systems - Review of Systems Constitutional: No symptoms reported EENT: No symptoms reported Cardiovascular: Chest pain Respiratory: No symptoms reported Gastrointestinal: No symptoms reported Genitourinary: No symptoms reported Female Genitourinary: No symptoms reported Musculoskeletal: No symptoms reported Skin: No symptoms reported Hematologic/Lymphatic: No symptoms reported Neurological/Psychological: No symptoms reported -: Yes All other systems reviewed and negative Physical Exam - Vital signs Vitals: Temp Pulse Resp BP Pulse Ox 98.2 F 62 22 H 151/80 H 98 08/19/16 14:01 08/19/16 14:01 08/19/16 14:01 08/19/16 14:01 08/19/16 14:01 Interpretation: Normal - General General appearance: Appears well, Alert - HEENT Head: Normocephalic, Atraumatic Eyes: Normal Pupils: PERRL - Respiratory Respiratory status: No respiratory distress Chest status: Nontender Breath sounds: Normal Chest palpation: Normal - Cardiovascular Rhythm: Regular Heart sounds: Normal auscultation Murmur: No - Abdominal Inspection: Normal Distension: No distension Bowel sounds: Normal Tenderness: Nontender Organomegaly: No organomegaly - Back Back: Normal, Nontender - Extremities General upper extremity: Normal inspection, Nontender, Normal color, Normal ROM , Normal temperature General lower extremity: Normal inspection, Nontender, Normal color, Normal ROM , Normal temperature, Normal weight bearing. No: Tai's sign - Neurological Neuro grossly intact: Yes Cognition: Normal Orientation: AAOx4 Mark Anthony Coma Scale Eye Opening: Spontaneous Harshaw Coma Scale Verbal: Oriented Mark Anthony Coma Scale Motor: Obeys Commands Mark Anthony Coma Scale Total: 15 Speech: Normal Motor strength normal: LUE, RUE, LLE, RLE Sensory: Normal - Psychological Associated symptoms: Normal affect, Normal mood - Skin Skin Temperature: Warm Skin Moisture: Dry Skin Color: Normal Course - Re-evaluation Re-evalutation: 08/19/16 19:26 The patient has atypical chest pain as the patient's chest pain is not suggestive of pulmonary embolus, cardiac ischemia, aortic dissection, or other serious etiology. Given the extremely low risk of these diagnoses further testing and evaluation for these possibilities does not appear to be indicated at this time. The patient has been instructed to return if the symptoms worsen or change in any way. Review of the patient's previous visit was performed. Medical voice network engineer and this time patient was encouraged follow-up with her cardiology and PCP - Vital Signs Vital signs: Temp Pulse Resp BP Pulse Ox 97.8 F 62 21 H 147/81 H 98 08/19/16 18:23 08/19/16 14:01 08/19/16 18:23 08/19/16 18:23 08/19/16 18:23 - Laboratory Result Diagrams: 08/19/16 15:15 08/19/16 15:15 Laboratory results interpreted by me: 08/19/16 15:15 RDW 14.2 H Discharge - Discharge Clinical Impression: Chest pain Qualifiers: Chest pain type: unspecified Qualified Code(s): R07.9 - Chest pain, unspecified Dyspnea Qualifiers: Dyspnea type: unspecified Qualified Code(s): R06.00 - Dyspnea, unspecified Condition: Good Disposition: HOME, SELF-CARE Instructions: Chest Wall Pain ([facility]), Chest Pain of Unclear Cause ([facility]), Dyspnea , Nonspecific ([facility]) Additional Instructions: Your laboratory studies today do not show any signs of cardiac ischemia heart damage heart attack chest x-ray also looks to be negative. I highly recommended she continue with her follow-up appointment with Dr. Rhoades for further outpatient testing of your symptoms. Forms: Return to Work Referrals: ANDIE GAMEZ MD [Primary Care Provider] - Follow up as needed
[2016-08-19 18:29] VITALS: BP 147/81
--- NOTE | 2016-08-19 22:50 | EKG REPORT ---
SEVERITY:- BORDERLINE ECG - SINUS RHYTHM VENTRICULAR PREMATURE COMPLEX BORDERLINE T WAVE ABNORMALITIES : Confirmed by: Miguel Ángel Rhoades 19-Aug-2016 22:49:30
== END 2016-08-19 18:34 | disposition home or self-care (01) ==
LOC: ER 13:48
DX: R07.9 Chest pain, unspecified (principal); R06.00 Dyspnea, unspecified; R06.02 Shortness of breath; I50.9 Heart failure, unspecified; I11.0 Hypertensive heart disease with heart failure
CPT/HCPCS: 36415; 71010; 80053; 82550; 82553; 84484; 85025; 85379; 93005; 93010; 99285

== ENCOUNTER 2016-11-17 17:42 | Emergency (ER) | payer BC ==
--- NOTE | 2016-11-17 19:48 | ER Document Report ---
HPI - HPI Pain Level: 3 Notes: Patient is a 51-year-old female who presents the ED complaining of right knee pain that began today. Patient states that her knee has been swelling as well. Patient states that she has had a previous arthroscopic surgery on that knee because of arthritic issues in the past. She has not noticed any redness or warmth to the knee. Patient states that it does hurt when she ambulates. She has not had any [id number] meds for symptoms. Patient did place ice on it with minimal relief. The pain does not radiate otherwise. The pain is described as occasional sharp pain with an ache. She denies any drug allergies. Denies any history of gout or septic arthritis in the past. Denies any IV drug use. Denies any headache, fever, eye redness/discharge, URI, sore throat, chest pain, palpitations, syncope, cough, shortness of breath, wheeze, dyspnea, abdominal pain, nausea/vomiting/diarrhea, urinary retention, dysuria, hematuria, urethral discharge, vaginal discharge/bleeding/odor, numbness/ tingling, muscle paralysis/weakness, or rash. - ROS Notes: REVIEW OF SYSTEMS: CONSTITUTIONAL : Denies fever, chills, or sweats. Denies recent illness. EENT: Denies eye, ear, throat, or mouth pain or symptoms. Denies nasal or sinus congestion or discharge. Denies throat, tongue, or mouth swelling or difficulty swallowing. CARDIOVASCULAR: Denies chest pain. Denies palpitations or racing or irregular heart beat. Denies ankle edema. RESPIRATORY: Denies cough, cold, or chest congestion. Denies shortness of breath, difficulty breathing, or wheezing. GASTROINTESTINAL: Denies abdominal pain or distention. Denies nausea, vomiting , or diarrhea. Denies blood in vomitus, stools, or per rectum. Denies black, tarry stools. Denies constipation. GENITOURINARY: Denies difficulty urinating, painful urination, burning, frequency, blood in urine, or discharge. MUSCULOSKELETAL: see hpi SKIN: Denies rash, lesions or sores. NEUROLOGICAL: Denies confusion or altered mental status. Denies passing out or loss of consciousness. Denies dizziness or lightheadedness. Denies headache. Denies weakness or paralysis or loss of use of either side. Denies problems with gait or speech. Denies sensory loss, numbness, or tingling. ALL OTHER SYSTEMS REVIEWED AND NEGATIVE. Dictation was performed using [employer] voice recognition software - REPRODUCTIVE Reproductive: DENIES: : - DERM Skin Color: Normal Past Medical History - Social History Smoking Status: Unknown if Ever Smoked Family History: Reviewed & Not Pertinent - Past Medical History Cardiac Medical History: Reports: Hx Congestive Heart Failure, Hx Hypertension Denies: Hx Coronary Artery Disease, Hx Heart Attack Pulmonary Medical History: Denies: Hx Asthma, Hx Bronchitis, Hx COPD, Hx Pneumonia Neurological Medical History: Denies: Hx Cerebrovascular Accident, Hx Seizures Renal/ Medical History: Denies: Hx Peritoneal Dialysis Musculoskeltal Medical History: Reports Hx Arthritis Past Surgical History: Denies: Hx Hysterectomy - Immunizations Hx Diphtheria, Pertussis, Tetanus Vaccination: No Vertical Provider Document - CONSTITUTIONAL Agree With Documented VS: Yes Notes: PHYSICAL EXAMINATION: GENERAL: Well-appearing, well-nourished and in no acute distress. HEAD: Atraumatic, normocephalic. EYES: Pupils equal round and reactive to light, extraocular movements intact, sclera anicteric, conjunctiva are normal. ENT: EAC clear b/l. TM's intact b/l without erythema, fluid, or perforation. Nares patent and without discharge. oropharynx clear without exudates. No tonsilar hypertrophy or erythema. Moist mucous membranes. No sinus tenderness. NECK: Normal range of motion, supple without lymphadenopathy LUNGS: Breath sounds clear to auscultation bilaterally and equal. No wheezes rales or rhonchi. HEART: Regular rate and rhythm without murmurs, rubs, gallops. Musculoskeletal: Rt knee: LROM to passive/active. Strength 5+/5. + swelling with possible small effusion to the medial knee. + tenderness to the medial joint line area. No erythema, warmth, abscess, streaks, or discharge noted. No other tenderness proximally/distally. Extremities: No cyanosis, clubbing, or edema b/l. Peripheral pulses 2+. Capillary refill less than 3 seconds. NEUROLOGICAL: Cranial nerves grossly intact. Normal speech, normal gait. Normal sensory, motor exams PSYCH: Normal mood, normal affect. SKIN: Warm, Dry, normal turgor, no rashes or lesions noted. - INFECTION CONTROL TRAVEL OUTSIDE OF THE [place] IN LAST 30 DAYS: No - RESPIRATORY O2 Sat by Pulse Oximetry: 97 Course - Re-evaluation Re-evalutation: 11/17/16 20:15 Patient is an afebrile, well-hydrated, 51-year-old female who presents to the ED with right knee pain not otherwise specified with a possible small effusion. Vitals are stable. PE otherwise unremarkable for any signs or symptoms of infection at this time. XR unremarkable for acute pathology. Low suspicion/ risk for any septic joint, sepsis, meningitis, fracture, or other urgent/ emergent condition at this time. Patient is aware that her condition can change from initial presentation and she needs to monitor symptoms closely and seek medical attention if any acute changes. Knee immobilizer was placed today and crutches were given. Conservative measures for symptoms otherwise. I would like her to call orthopedics tomorrow to schedule an appointment for further evaluation. Recheck with her PCM later this week as well. Return to the ED with any worsening/concerning symptoms otherwise as reviewed in discharge. Patient is in agreement. - Vital Signs Vital signs: Temp Pulse Resp BP Pulse Ox 98.1 F 75 22 H 186/86 H 97 11/17/16 17:54 11/17/16 17:54 11/17/16 17:54 11/17/16 17:54 11/17/16 17:54 Discharge - Discharge Clinical Impression: Right knee pain Qualifiers: Chronicity: acute Qualified Code(s): M25.561 - Pain in right knee Condition: Stable Disposition: HOME, SELF-CARE Instructions: Use of Crutches ([facility]), Ice & Elevation ([facility]), Knee Immobilizing Splint ([facility]) Additional Instructions: Rest, Ice, Compression, Elevation Use splint/crutches as directed Tylenol/ibuprofen as needed Light stretches daily Strength exercises as able Moist heat and massage may help F/u with your PCP this week for a recheck Call orthopedics tomorrow to schedule an appointment for further evaluation Return to the ED with any worsening symptoms and/or development of fever, headache, chest pain, palpitations, syncope, shortness of breath, trouble breathing, abdominal pain, n/v/d, muscle weakness/paralysis, numbness/tingling, swelling, redness, or other worsening symptoms that are concerning to you. Forms: Elevated Blood Pressure Referrals: [facility] [Provider Group] - Follow up tomorrow
--- NOTE | 2016-11-17 20:10 | RADIOLOGY REPORT (SQ) ---
EXAM DESCRIPTION: KNEE RIGHT 4 VIEWS COMPLETED DATE/TIME: 11/17/2016 7:42 pm REASON FOR STUDY: right knee pain, poss. small effusion COMPARISON: None. NUMBER OF VIEWS: Four views. TECHNIQUE: AP, lateral, and both oblique radiographic images acquired of the right knee. LIMITATIONS: None. FINDINGS: MINERALIZATION: Normal. BONES: No acute fracture or dislocation. No worrisome bone lesions. JOINT: No effusion. SOFT TISSUES: No soft tissue swelling. No radio-opaque foreign body. OTHER: No other significant finding. IMPRESSION: NEGATIVE STUDY OF THE RIGHT KNEE. NO RADIOGRAPHIC EVIDENCE OF ACUTE INJURY. TECHNICAL DOCUMENTATION: JOB ID: [id number] [employer]- All Rights Reserved
[2016-11-17 20:48] VITALS: BP 190/93
== END 2016-11-17 20:45 | disposition home or self-care (01) ==
LOC: ER 17:42
DX: M25.561 Pain in right knee (principal); M79.89 Other specified soft tissue disorders; G89.29 Other chronic pain
CPT/HCPCS: 99283; 73564; L1830

== ENCOUNTER 2018-04-16 17:02 | Emergency (ER) | payer BC ==
[2018-04-16 17:44] VITALS: BP 192/85
[2018-04-16] MEDS ORDERED: ACETAMINOPHEN 325 MG TABLET PO ONE (18:06)
[2018-04-16] MEDS ORDERED: CLONIDINE HCL 0.1 MG TABLET PO ONE (18:06)
--- NOTE | 2018-04-16 18:09 | ER Document Report ---
HPI - HPI Patient complains to provider of: Cold symptoms Time Seen by Provider: 04/16/18 17:54 Onset: Yesterday Onset/Duration: Gradual Quality of pain: Achy Pain Level: 3 Context: Patient presents complaining of frontal headache pain, fever chills congestion cough and sore throat that started yesterday. Patient states that she has been exposed to people with flu at work. Patient states that she is compliant with taking her blood pressure medicine but had to change her medicine about 4 months ago due to a medication recall. Patient states that since switching off of her valsartan she has not had as good blood pressure control. Patient denies any chest pain or dyspnea. Associated Symptoms: Body/muscle aches, Nonproductive cough, Fever, Headache, Rhinnorhea. denies: Chest pain, Leg swelling, Nausea, Vomiting, Shortness of breath Exacerbated by: Denies Relieved by: Denies Similar symptoms previously: No Recently seen / treated by doctor: No - ROS ROS below otherwise negative: Yes Systems Reviewed and Negative: Yes All other systems reviewed and negative - CONSTITUTIONAL Constitutional: REPORTS: Fever, Chills - EENT EENT: REPORTS: Sore Throat, Nasal Drainage-Clear, Congestion - NEURO Neurology: REPORTS: Headache. DENIES: Vision blurred, Dizzinesss / Vertigo - CARDIOVASCULAR Cardiovascular: DENIES: Chest pain - RESPIRATORY Respiratory: REPORTS: Coughing - GASTROINTESTINAL Gastrointestinal: DENIES: Abdominal Pain, Nausea, Patient vomiting - REPRODUCTIVE Reproductive: DENIES: : - MUSCULOSKELETAL Musculoskeletal: DENIES: Extremity pain, Back Pain - DERM Skin Color: Normal Skin Problems: None Past Medical History - General Information source: Patient - Social History Smoking Status: Never Smoker Chew tobacco use (# tins/day): No Frequency of alcohol use: None Drug Abuse: None Occupation: [employer] Lives with: Spouse/Significant other Family History: Reviewed & Not Pertinent Patient has suicidal ideation: No Patient has homicidal ideation: No - Past Medical History Cardiac Medical History: Reports: Hx Congestive Heart Failure, Hx Hypertension Neurological Medical History: Denies: Hx Cerebrovascular Accident, Hx Seizures Endocrine Medical History: Reports: Hx Diabetes Mellitus Type 2 Renal/ Medical History: Denies: Hx Peritoneal Dialysis Musculoskeletal Medical History: Reports Hx Arthritis, Reports Hx Fibromyalgia Past Surgical History: Reports: Hx Breast Surgery, Hx Orthopedic Surgery - Immunizations Hx Diphtheria, Pertussis, Tetanus Vaccination: No Vertical Provider Document - CONSTITUTIONAL Agree With Documented VS: Yes Exam Limitations: No Limitations General Appearance: WD/WN, No Apparent Distress - INFECTION CONTROL TRAVEL OUTSIDE OF THE [place] IN LAST 30 DAYS: No - HEENT HEENT: Atraumatic, Normocephalic, PERRLA, Pharyngeal Tenderness, Pharyngeal Erythema. negative: Pharyngeal Exudate - NECK Neck: Normal Inspection, Supple. negative: Lymphadenopathy-Left, Lymphadenopathy-Right Notes: No meningismus - RESPIRATORY Respiratory: Breath Sounds Normal, No Respiratory Distress - CARDIOVASCULAR Cardiovascular: Regular Rate, Regular Rhythm, No Murmur - BACK Back: Normal Inspection Notes: No spinal midline tenderness - MUSCULOSKELETAL/EXTREMETIES Musculoskeletal/Extremeties: MAEW, FROM, Non-Tender - NEURO Level of Consciousness: Awake, Alert, Appropriate Motor/Sensory: No Motor Deficit - DERM Integumentary: Warm, Dry, No Rash Course - Re-evaluation Re-evalutation: 04/16/18 18:08 Patient presents with likely flu symptoms. Patient does report poor control of her blood pressure over the past 4 months since switching blood pressure medications due to medication recall. Patient states she is compliant with taking her medicines but has not seen her doctor about may be adjusting her dosage as she has not had good control. Patient with headache symptoms likely a symptom of her flulike symptoms which coincided with onset of her body aches chills cough and congestion sore throat. Consulted with Dr. Canada who recommends giving her a dose of clonidine, treating headache pain and reevaluating once blood pressure has come down some. Does not recommend CT imaging of the head or additional blood work at this time. 04/16/18 19:56 Patient with a likely flu symptoms. Discussed efficacy and side effect profile of Tamiflu. Patient declines prescription at this time. Discussed worsening symptoms that patient should return immediately for. Patient encouraged to monitor her blood pressure daily. Patient encouraged to contact her primary doctor Thursday to discuss her blood pressure management. 04/16/18 20:51 Patient continues with elevated blood pressure and no improvement of her headache pain. Consulted again with Dr. Canada who recommends ordering labs as well as giving her a dose of hydralazine and reevaluating. 04/16/18 21:26 Report and handoff given to Bo NIX - Vital Signs Vital signs: Temp Pulse Resp BP Pulse Ox 98.7 F 61 18 192/85 H 97 04/16/18 17:43 04/16/18 17:43 04/16/18 17:43 04/16/18 17:43 04/16/18 17:43 - Laboratory Laboratory results interpreted by me: 04/16/18 19:57 Labs- Entire Visit 04/16/18 18:16 Group A Strep Rapid NEGATIVE Discharge - Discharge Clinical Impression: Flu-like symptoms, Sore throat Headache Qualifiers: Headache type: unspecified Headache chronicity pattern: unspecified pattern Intractability: not intractable Qualified Code(s): R51 - Headache Hypertension Qualifiers: Hypertension type: unspecified Qualified Code(s): I10 - Essential (primary) hypertension Condition: Stable Disposition: HOME, SELF-CARE Instructions: Acetaminophen, Headache ([facility]), High Blood Pressure, Requiring Treatment ([facility]), Influenza ([facility]) Additional Instructions: Return immediately for any new or worsening symptoms Followup with your primary care provider, call tomorrow to make a followup appointment Throat culture is pending, we will call if you need any different treatment Call your primary doctor on Thursday to discuss your blood pressure medications. You may need to have your medications adjusted. Prescriptions: Butalb/Acetaminophen/Caffeine [Fioricet (50-325-40 mg) Tablet] 1 - 2 tab PO Q4H #16 each Referrals: ANDIE GAMEZ MD [Primary Care Provider] - 04/19/18
[2018-04-16] MEDS ORDERED: HYDRALAZINE HCL INJ/PF 20 MG/1 ML SDV IV ONE (20:51)
--- NOTE | 2018-04-16 21:53 | RADIOLOGY REPORT (SQ) ---
EXAM DESCRIPTION: XR CHEST 2 VIEWS COMPLETED DATE/TME: 04/16/2018 21:12 CLINICAL HISTORY: 53 years Female HTN COMPARISON: 08/19/2016. FINDINGS: The cardiomediastinal silhouette appears unremarkable. No consolidating infiltrates or pleural effusions. No pneumothorax. IMPRESSION: No acute abnormality is identified.
--- NOTE | 2018-04-16 21:54 | RADIOLOGY REPORT (SQ) ---
EXAM DESCRIPTION: CT HEAD WITHOUT IV CONTRAST COMPLETED DATE/TME: 04/16/2018 20:39 CLINICAL HISTORY: 53 years Female MAC[place], HTN COMPARISON: None. TECHNIQUE: Contiguous axial CT images obtained through the brain without IV contrast. This exam was performed according to our department optimization program which includes automated exposure control, adjustment of the mA and/or kv according to patient size and/or use of iterative reconstruction technique. FINDINGS: The ventricles and sulci are within normal limits for the patient's age. No midline shift or mass effect. No masses identified. No acute intracranial hemorrhage. No fluid or significant mucosal thickening in the visualized paranasal sinuses. No depressed calvarial fractures. IMPRESSION: No acute intracranial abnormality is identified.
[2018-04-16 22:23] LABS: ABSOLUTE EOSINOPHILS # (AUTO) 0.2 10^3/uL (0.0-0.6); ABSOLUTE LYMPHOCYTES (AUTO) 3.4 10^3/uL (0.5-4.7); ABSOLUTE MONOCYTES (AUTO) 0.6 10^3/uL (0.1-1.4); ABSOLUTE NEUT (AUTO) 3.8 10^3/uL (1.7-8.2); BASOPHILS % (AUTO) 0.5 % (0-2); EOSINOPHILS % (AUTO) 2.8 % (0-6); HEMATOCRIT 38.7 % (36.0-47.0); HEMOGLOBIN 13.1 g/dL (12.0-15.5); LYMPHOCYTES % (AUTO) 42.2 % (13-45); MEAN CORPUSCULAR HEMOGLOBIN 30.9 pg (27.0-33.4); MEAN CORPUSCULAR HGB CONC 33.9 g/dL (32.0-36.0); MEAN CORPUSCULAR VOLUME 91 fl (80-97); MONOCYTES % (AUTO) 7.6 % (3-13); PLATELET COUNT 264 10^3/uL (150-450); RED BLOOD COUNT 4.25 10^6/uL (3.72-5.28); RED CELL DISTRIBUTION WIDTH 14.5 % (11.5-14.0); SEGMENTED NEUTROPHILS % (AUTO) 46.9 % (42-78); TOTAL CELLS COUNTED % (AUTO) 100 %; WHITE BLOOD COUNT 8.1 10^3/uL (4.0-10.5)
[2018-04-16 22:41] LABS: ANION GAP 9 (5-19); BLOOD UREA NITROGEN 16 mg/dL (7-20); CALCIUM 9.1 mg/dL (8.4-10.2); CARBON DIOXIDE 29 mmol/L (22-30); CHLORIDE 105 mmol/L (98-107); GLUCOSE 152 mg/dL (75-110); POTASSIUM 3.4 mmol/L (3.6-5.0); SODIUM 142.7 mmol/L (137-145)
== END 2018-04-16 23:43 | disposition home or self-care (01) ==
LOC: ER 17:02
DX: J02.9 Acute pharyngitis, unspecified (principal); R50.9 Fever, unspecified; R05 Cough; M79.10 Myalgia, unspecified site; J34.89 Other specified disorders of nose and nasal sinuses; I10 Essential (primary) hypertension; Z79.899 Other long term (current) drug therapy; R51 Headache; E11.9 Type 2 diabetes mellitus without complications; Z20.828 Contact with and (suspected) exposure to other viral communicable diseases
CPT/HCPCS: 99284; 96374; 36415; 87070; 87880; 85025; 80048; 71046; 70450; J0360

== ENCOUNTER 2019-03-15 18:38 | Emergency (ER) | payer BC ==
[2019-03-15] MEDS ORDERED: ONDANSETRON 4 MG TAB.RAPDIS PO ONE (19:04)
--- NOTE | 2019-03-15 19:08 | ER Document Report ---
ED Medical Screen (RME) - General Chief Complaint: Vomiting Stated Complaint: BODY PAIN, VOMITING Time Seen by Provider: 03/15/19 19:03 Mode of Arrival: Ambulatory Information source: Patient Notes: 54-year-old female presented to ED for complaint of abdominal pain upper, with nausea vomiting and diarrhea that started about 6 PM. It is now 705. She states she was at work when she started vomiting and diarrhea and they sent her home told her to go get checked out. She denies any fever. She does not have a fever when examined here. She will be treated with Zofran in the emergency room . She is postmenopausal. She states she does still have her gallbladder. She states she does have congestive heart failure. She states she does feel like her heart is racing from her throwing up. I have greeted and performed a rapid initial assessment of this patient. A comprehensive ED assessment and evaluation of the patient, analysis of test results and completion of medical decision making process will be conducted by an additional ED providers. TRAVEL OUTSIDE OF THE [place] IN LAST 30 DAYS: No - Related Data Allergies/Adverse Reactions: No Known Allergies Allergy (Verified 03/15/19 19:03) Past Medical History - Past Medical History Cardiac Medical History: Reports: Hx Congestive Heart Failure, Hx Hypertension Denies: Hx Coronary Artery Disease, Hx Heart Attack Pulmonary Medical History: Denies: Hx Asthma, Hx Bronchitis, Hx COPD, Hx Pneumonia Neurological Medical History: Denies: Hx Cerebrovascular Accident, Hx Seizures Endocrine Medical History: Reports: Hx Diabetes Mellitus Type 2 Renal/ Medical History: Denies: Hx Peritoneal Dialysis Musculoskeltal Medical History: Reports Hx Arthritis, Reports Hx Fibromyalgia Past Surgical History: Reports: Hx Breast Surgery, Hx Orthopedic Surgery. Denies: Hx Hysterectomy - Immunizations Hx Diphtheria, Pertussis, Tetanus Vaccination: No Physical Exam - Vital signs Vitals: Temp Pulse Resp BP Pulse Ox 98.1 F 68 18 127/62 H 97 03/15/19 18:55 03/15/19 18:55 03/15/19 18:55 03/15/19 18:55 03/15/19 18:55 Course - Vital Signs Vital signs: Temp Pulse Resp BP Pulse Ox 98.1 F 68 18 127/62 H 97 03/15/19 18:55 03/15/19 18:55 03/15/19 18:55 03/15/19 18:55 03/15/19 18:55
[2019-03-15 19:47] LABS: ABSOLUTE BASOPHILS # (AUTO) 0.1 10^3/uL (0.0-0.2); ABSOLUTE EOSINOPHILS # (AUTO) 0.1 10^3/uL (0.0-0.6); ABSOLUTE LYMPHOCYTES (AUTO) 2.7 10^3/uL (0.5-4.7); ABSOLUTE MONOCYTES (AUTO) 0.7 10^3/uL (0.1-1.4); ABSOLUTE NEUT (AUTO) 7.7 10^3/uL (1.7-8.2); BASOPHILS % (AUTO) 0.7 % (0-2); EOSINOPHILS % (AUTO) 1.2 % (0-6); HEMATOCRIT 44.7 % (36.0-47.0); HEMOGLOBIN 15.4 g/dL (12.0-15.5); LYMPHOCYTES % (AUTO) 23.8 % (13-45); MEAN CORPUSCULAR HEMOGLOBIN 32.2 pg (27.0-33.4); MEAN CORPUSCULAR HGB CONC 34.4 g/dL (32.0-36.0); MEAN CORPUSCULAR VOLUME 94 fl (80-97); MONOCYTES % (AUTO) 6.3 % (3-13); PLATELET COUNT 314 10^3/uL (150-450); RED BLOOD COUNT 4.79 10^6/uL (3.72-5.28); RED CELL DISTRIBUTION WIDTH 14.5 % (11.5-14.0); TOTAL CELLS COUNTED % (AUTO) 100 %; WHITE BLOOD COUNT 11.3 10^3/uL (4.0-10.5)
[2019-03-15 20:06] LABS: ALBUMIN 4.5 g/dL (3.5-5.0); ALKALINE PHOSPHATASE 78 U/L (38-126); ANION GAP 12 (5-19); ASPARTATE AMINO TRANSFERASE 30 U/L (14-36); BILIRUBIN,DIRECT 0.3 mg/dL (0.0-0.4); BILIRUBIN,TOTAL 0.7 mg/dL (0.2-1.3); BLOOD UREA NITROGEN 17 mg/dL (7-20); CALCIUM 9.8 mg/dL (8.4-10.2); CARBON DIOXIDE 30 mmol/L (22-30); CHLORIDE 101 mmol/L (98-107); GLUCOSE 143 mg/dL (75-110); POTASSIUM 3.3 mmol/L (3.6-5.0); TOTAL PROTEIN 8.3 g/dL (6.3-8.2)
[2019-03-15] MEDS ORDERED: NORMAL SALINE 1000 ML 1,000 ML IV ONE (20:16)
[2019-03-15] MEDS ORDERED: KETOROLAC TROMETHAMINE INJ/PF 30 MG/1 ML SDV IV ONE (20:16)
--- NOTE | 2019-03-15 20:19 | ER Document Report ---
ED GI/ - General Chief Complaint: Abdominal Pain Stated Complaint: BODY PAIN, VOMITING Time Seen by Provider: 03/15/19 19:03 Primary Care Provider: JERILYN BANEGAS MD [Primary Care Provider] - Follow up as needed Mode of Arrival: Ambulatory Notes: Patient is a 54-year-old female that comes emergency department for chief complaint of upper abdominal pain. She states she was at work when she suddenly started feeling pain in her upper abdomen, she subsequently vomited 3 times. She states that she last had a bowel movement this morning which was normal, nonbloody. She denies fever. She denies any other locations of pain, denies any abdominal surgeries, denies eating this evening. Past medical history of fatty liver, hypertension, type 2 diabetes. TRAVEL OUTSIDE OF THE [place] IN LAST 30 DAYS: No - Related Data Allergies/Adverse Reactions: No Known Allergies Allergy (Verified 03/15/19 19:03) Past Medical History - General Information source: Patient - Social History Smoking Status: Never Smoker Frequency of alcohol use: None Drug Abuse: None Lives with: Family Family History: Hypertension Patient has suicidal ideation: No Patient has homicidal ideation: No - Past Medical History Cardiac Medical History: Reports: Hx Congestive Heart Failure, Hx Hypertension Denies: Hx Coronary Artery Disease, Hx Heart Attack Pulmonary Medical History: Denies: Hx Asthma, Hx Bronchitis, Hx COPD, Hx Pneumonia Neurological Medical History: Denies: Hx Cerebrovascular Accident, Hx Seizures Endocrine Medical History: Reports: Hx Diabetes Mellitus Type 2 Renal/ Medical History: Denies: Hx Peritoneal Dialysis Musculoskeletal Medical History: Reports Hx Arthritis, Reports Hx Fibromyalgia Past Surgical History: Reports: Hx Breast Surgery, Hx Orthopedic Surgery. D enies: Hx Hysterectomy - Immunizations Hx Diphtheria, Pertussis, Tetanus Vaccination: No Review of Systems - Review of Systems Constitutional: No symptoms reported EENT: No symptoms reported Cardiovascular: No symptoms reported Respiratory: No symptoms reported Gastrointestinal: See HPI Genitourinary: No symptoms reported Female Genitourinary: No symptoms reported Musculoskeletal: No symptoms reported Skin: No symptoms reported Hematologic/Lymphatic: No symptoms reported Neurological/Psychological: No symptoms reported Physical Exam - Vital signs Vitals: Temp Pulse Resp BP Pulse Ox 98.1 F 68 18 127/62 H 97 03/15/19 18:55 03/15/19 18:55 03/15/19 18:55 03/15/19 18:55 03/15/19 18:55 - Notes Notes: GENERAL: Alert, interacts well. No acute distress. HEAD: Normocephalic, atraumatic. EYES: Pupils equal, round, and reactive to light. Extraocular movements intact. ENT: Oral mucosa dry, tongue midline. Oropharynx unremarkable. Airway patent. NECK: Full range of motion. Supple. Trachea midline. LUNGS: Clear to auscultation bilaterally, no wheezes, rales, or rhonchi. No respiratory distress. HEART: Mildly tachycardic, normal rhythm, no murmur ABDOMEN: Tenderness in the epigastric area, mild tenderness in the right upper quadrant, left upper quadrant and lower abdomen are completely benign GENITOURINARY: Deferred EXTREMITIES: Moves all 4 extremities spontaneously. No edema, normal radial and dorsalis pedis pulses bilaterally. No cyanosis. BACK: no cervical, thoracic, lumbar midline tenderness. No saddle anesthesia, normal distal neurovascular exam. Moves all extremities in full range of motion. NEUROLOGICAL: Alert and oriented x3. Normal speech. Cranial nerves II through XII grossly intact. PSYCH: Normal affect, normal mood. SKIN: Warm, dry, normal turgor. No rashes or lesions noted. Course - Re-evaluation Re-evalutation: Patient has upper abdominal pain mainly in the epigastric area, slightly in the right upper quadrant, lower abdomen is completely benign. She is smiling and well-appearing. After Zofran, Toradol, IV fluids symptoms are completely resolved. CBC unremarkable, chemistry shows borderline potassium after vomiting but all PVCs and PACs resolved after just fluids. Ultrasound shows fatty liver but no acute findings. I discussed with patient, she is already aware of this. EKG initially tachycardic before IV fluids with PVCs and PACs. Tachycardia resolved afterwards, on monitoring there is no amanda rning rhythm. 2 negative troponins noted. Based on her evaluation I have high suspicion that this is viral, I have low suspicion of ACS or acute abdomen. Patient tolerating p.o. without any difficulty, states she feels great and is asking to go home. She will be discharged with nausea medication, follow-up instructions, return precautions. Discussed at length. Patient states understanding and agreement. Stable at time of discharge. - Vital Signs Vital signs: Temp Pulse Resp BP Pulse Ox 98.1 F 68 16 127/53 H 97 03/15/19 18:55 03/15/19 18:55 03/16/19 00:02 03/16/19 00:02 03/16/19 00:02 - Laboratory Result Diagrams: 03/15/19 19:33 03/15/19 19:33 Laboratory results interpreted by me: 03/15/19 03/15/19 03/15/19 19:33 19:33 19:38 WBC 11.3 H RDW 14.5 H Potassium 3.3 L Est GFR (MDRD) Non-Af 57 L Glucose 143 H POC Glucose 148 H Total Protein 8.3 H Urine Glucose (UA) Urine Ascorbic Acid 03/15/19 22:06 WBC RDW Potassium Est GFR (MDRD) Non-Af Glucose POC Glucose Total Protein Urine Glucose (UA) >=500 H Urine Ascorbic Acid 40 H - EKG Interpretation by Me Additional EKG results interpreted by me: EKG shows sinus rhythm at a rate of 133, PACs, PVCs. Borderline left axis deviation. No T wave inversions or ST segment changes in consecutive leads. QTC of 482. Discharge - Discharge Clinical Impression: Upper abdominal pain Vomiting Qualifiers: Vomiting type: unspecified Vomiting Intractability: non-intractable Nausea presence: with nausea Qualified Code(s): R11.2 - Nausea with vomiting, unspecified Condition: Stable Disposition: HOME, SELF-CARE Additional Instructions: Your work-up, ultrasound, and evaluation are most consistent with a viral illness as the cause of your symptoms. This should resolve with time. Take Zofran for nausea/vomiting, start with bland food, drink plenty of fluids, rest. Symptoms should resolve with time. Follow-up with primary care. Return if you worsen including uncontrolled vomiting, severe abdominal pain, fever, chest pain, or any other concerning or worsening symptoms. Prescriptions: Ondansetron [Zofran Odt 4 mg Tablet] 1 - 2 tab PO Q4H PRN #15 tab.rapdis PRN Reason: For Nausea/Vomiting Forms: Return to Work Referrals: JERILYN BANEGAS MD [Primary Care Provider] - Follow up as needed
[2019-03-15 22:21] LABS: APPEARANCE,URINE CLEAR; BILIRUBIN,URINE NEGATIVE (NEGATIVE); COLOR,URINE YELLOW; GLUCOSE, URINE >=500 mg/dL (NEGATIVE); KETONES,URINE NEGATIVE (NEGATIVE); PROTEIN,URINE NEGATIVE (NEGATIVE); URINE SPECIFIC GRAVITY 1.015; UROBILINOGEN,URINE NEGATIVE mg/dL (<2.0)
--- NOTE | 2019-03-15 22:22 | RADIOLOGY REPORT (SQ) ---
EXAM DESCRIPTION: US ABDOMEN LIMITED COMPLETED DATE/TME: 03/15/2019 20:16 CLINICAL HISTORY: 54 years, Female, epigastric and RUQ pain, vomiting COMPARISON: None. TECHNIQUE: Limited right upper quadrant ultrasound LIMITATIONS: None. FINDINGS: Echogenic appearance to the liver consistent with diffuse fatty infiltrative change. No definitive gallstones. No gallbladder wall thickening or pericholecystic fluid. Limited study due to poor penetration from patient body habitus and fatty liver. Suboptimal visualization of the pancreas, abdominal aorta, inferior vena cava. The visualized right kidney is unremarkable. There is no ascites. The CBD was not well seen. IMPRESSION: Limited study due to patient body habitus and dense, echogenic fatty liver. However, no definitive gallstones. copyright 2010 [facility] [employer]- All Rights Reserved
--- NOTE | 2019-03-15 22:26 | EKG REPORT ---
SEVERITY:- ABNORMAL ECG - SINUS WITH FREQUENT APCs AND SHORT MAT RUN PROBABLE LVH WITH SECONDARY REPOL ABNRM : Confirmed by: Miguel Ángel Rhoades 15-Mar-2019 22:25:51
[2019-03-15] MEDS ORDERED: ONDANSETRON ODT 4 MG TAB (6 TAB/ER DISP) PO PRN (22:36)
[2019-03-16 00:10] VITALS: BP 127/53
== END 2019-03-16 00:09 | disposition home or self-care (01) ==
LOC: ER 18:38
DX: R10.13 Epigastric pain (principal); R10.11 Right upper quadrant pain; R10.816 Epigastric abdominal tenderness; R10.811 Right upper quadrant abdominal tenderness; R11.2 Nausea with vomiting, unspecified; I49.3 Ventricular premature depolarization; I49.1 Atrial premature depolarization; R00.0 Tachycardia, unspecified; I10 Essential (primary) hypertension; E11.9 Type 2 diabetes mellitus without complications
CPT/HCPCS: 93005; 99284; 96361; 96374; 36415; 82962; 83690; 85025; 80053; 81001; 84484; 76705; 93010; S0119; J1885; J7030

== ENCOUNTER 2019-05-19 14:46 | Emergency (ER) | payer BC ==
[2019-05-19] MEDS ORDERED: NORMAL SALINE 1000 ML 1,000 ML IV PRN (15:24)
--- NOTE | 2019-05-19 15:28 | ER Document Report ---
ED Medical Screen (RME) - General Chief Complaint: Shortness Of Breath Stated Complaint: SHORT OF BREATH Time Seen by Provider: 05/19/19 15:21 Primary Care Provider: JERILYN BANEGAS MD [Primary Care Provider] - Follow up as needed Information source: Patient, Relative TRAVEL OUTSIDE OF THE [place] IN LAST 30 DAYS: No - HPI Patient complains to provider of: Sudden onset dizziness weakness shortness of breath. Onset: Just prior to arrival Onset/Duration: Sudden - Related Data Allergies/Adverse Reactions: No Known Allergies Allergy (Verified 03/15/19 19:03) Past Medical History - General Information source: Patient - Social History Cigarette use (# per day): No Frequency of alcohol use: None Drug Abuse: None Lives with: Family - Past Medical History Cardiac Medical History: Reports: Hx Congestive Heart Failure, Hx Hypertension Denies: Hx Coronary Artery Disease, Hx Heart Attack Pulmonary Medical History: Denies: Hx Asthma, Hx Bronchitis, Hx COPD, Hx Pneumonia Neurological Medical History: Denies: Hx Cerebrovascular Accident, Hx Seizures Endocrine Medical History: Reports: Hx Diabetes Mellitus Type 2 Renal/ Medical History: Denies: Hx Peritoneal Dialysis Musculoskeltal Medical History: Reports Hx Arthritis, Reports Hx Fibromyalgia Past Surgical History: Reports: Hx Breast Surgery, Hx Orthopedic Surgery. Denies: Hx Hysterectomy - Immunizations Hx Diphtheria, Pertussis, Tetanus Vaccination: No Review of Systems - Review of Systems Constitutional: Malaise, Weakness Cardiovascular: Palpitations, Dyspnea, Dizziness Respiratory: No symptoms reported Physical Exam - Vital signs Vitals: Temp Pulse Resp BP Pulse Ox 98.7 F 85 18 101/59 L 98 05/19/19 15:05/19/19 15:05/19/19 15:05/19/19 15:05/19/19 15:01 - Respiratory Respiratory status: No respiratory distress Chest status: Nontender Breath sounds: Normal Chest palpation: Normal - Cardiovascular Rhythm: Extrasystoles Murmur: No Course - Vital Signs Vital signs: Temp Pulse Resp BP Pulse Ox 98.7 F 85 18 101/59 L 98 05/19/19 15:01 05/19/19 15:01 05/19/19 15:01 05/19/19 15:01 05/19/19 15:01 Doctor's Discharge - Discharge Referrals: JERILYN BANEGAS MD [Primary Care Provider] - Follow up as needed
[2019-05-19 16:07] LABS: ABSOLUTE EOSINOPHILS # (AUTO) 0.2 10^3/uL (0.0-0.6); ABSOLUTE LYMPHOCYTES (AUTO) 3.7 10^3/uL (0.5-4.7); ABSOLUTE MONOCYTES (AUTO) 0.7 10^3/uL (0.1-1.4); ABSOLUTE NEUT (AUTO) 4.8 10^3/uL (1.7-8.2); BASOPHILS % (AUTO) 0.2 % (0-2); HEMATOCRIT 40.6 % (36.0-47.0); LYMPHOCYTES % (AUTO) 39.2 % (13-45); MEAN CORPUSCULAR HEMOGLOBIN 32.4 pg (27.0-33.4); MEAN CORPUSCULAR HGB CONC 34.5 g/dL (32.0-36.0); MEAN CORPUSCULAR VOLUME 94 fl (80-97); MONOCYTES % (AUTO) 7.3 % (3-13); PLATELET COUNT 399 10^3/uL (150-450); RED BLOOD COUNT 4.32 10^6/uL (3.72-5.28); RED CELL DISTRIBUTION WIDTH 14.9 % (11.5-14.0); SEGMENTED NEUTROPHILS % (AUTO) 51.3 % (42-78); TOTAL CELLS COUNTED % (AUTO) 100 %; WHITE BLOOD COUNT 9.3 10^3/uL (4.0-10.5)
[2019-05-19 16:15] LABS: INTERNATIONAL RATION (INR) 0.98
[2019-05-19 16:17] LABS: D-DIMER 0.33 ug/mL (0.00-0.50)
--- NOTE | 2019-05-19 16:17 | RADIOLOGY REPORT (SQ) ---
EXAM DESCRIPTION: CHEST SINGLE VIEW COMPLETED DATE/TIME: 05/19/2019 3:46 pm REASON FOR STUDY: cp COMPARISON: None. NUMBER OF VIEWS: One view. TECHNIQUE: Single frontal radiographic view of the chest acquired. LIMITATIONS: None. FINDINGS: LUNGS AND PLEURA: No opacities, masses or pneumothorax. No pleural effusion. MEDIASTINUM AND HILAR STRUCTURES: No masses. Contour normal. HEART AND VASCULAR STRUCTURES: Heart normal in size. Normal vasculature. BONES: No acute findings. HARDWARE: None in the chest. OTHER: No other significant finding. IMPRESSION: NO SIGNIFICANT RADIOGRAPHIC FINDING IN THE CHEST. TECHNICAL DOCUMENTATION: JOB ID: [id number] 2010 [employer]- All Rights Reserved Reading location - IP/workstation name: [email or web address]
[2019-05-19 16:24] LABS: ALBUMIN 4.1 g/dL (3.5-5.0); ALKALINE PHOSPHATASE 68 U/L (38-126); ANION GAP 9 (5-19); ASPARTATE AMINO TRANSFERASE 27 U/L (14-36); BILIRUBIN,TOTAL 0.8 mg/dL (0.2-1.3); BLOOD UREA NITROGEN 22 mg/dL (7-20); CALCIUM 10.1 mg/dL (8.4-10.2); CARBON DIOXIDE 35 mmol/L (22-30); CHLORIDE 95 mmol/L (98-107); CREATINE KINASE 129 U/L (30-135); GLUCOSE 163 mg/dL (75-110); POTASSIUM 3.3 mmol/L (3.6-5.0); TOTAL PROTEIN 7.5 g/dL (6.3-8.2)
[2019-05-19 16:36] LABS: CREATINE KINASE MB 2.37 ng/mL (<4.55); TROPONIN I 0.016 ng/mL
[2019-05-19 18:09] LABS: NT PRO BNP 75 pg/mL (<125)
[2019-05-19 18:12] LABS: TROPONIN I < 0.012 ng/mL
[2019-05-19] MEDS ORDERED: NORMAL SALINE 500 ML IV ONE (18:14)
--- NOTE | 2019-05-19 18:29 | ER Document Report ---
ED General - General Chief Complaint: Shortness Of Breath Stated Complaint: SHORT OF BREATH Time Seen by Provider: 05/19/19 15:21 Primary Care Provider: JERILYN BANEGAS MD [Primary Care Provider] - Follow up as needed Notes: 54-year-old black female who works at [employer] at [place] and felt short of breath while she was working at the [employer]. Therefore she came to the ER to be evaluated. Patient takes losartan Lasix metoprolol metformin and aspirin every morning and her package. She usually takes this in the a.m. hours around 0 800 and today around 1230 is when she became very dizzy and lightheaded while in some hot clothing on a hot day over a hot [employer]. 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 This is never happened in the past per patient. Patient's blood pressure was 103 systolic when I entered the room and Marquita VAZQUEZ performed orthostatics on patient. We gave the patient some fluids as well. I suspect some dehydration. BUN and cr eatinine are slightly elevated chest x-ray is normal. TRAVEL OUTSIDE OF THE [place] IN LAST 30 DAYS: No - HPI Onset: Just prior to arrival - Related Data Allergies/Adverse Reactions: No Known Allergies Allergy (Verified 05/19/19 18:16) Past Medical History - General Information source: Patient - Social History Smoking Status: Never Smoker Cigarette use (# per day): No Chew tobacco use (# tins/day): No Smoking Education Provided: No Frequency of alcohol use: None Drug Abuse: None Lives with: Family Family History: Hypertension Patient has suicidal ideation: No Patient has homicidal ideation: No - Past Medical History Cardiac Medical History: Reports: Hx Congestive Heart Failure, Hx Hypertension Denies: Hx Coronary Artery Disease, Hx Heart Attack Pulmonary Medical History: Denies: Hx Asthma, Hx Bronchitis, Hx COPD, Hx Pneumonia Neurological Medical History: Denies: Hx Cerebrovascular Accident, Hx Seizures Endocrine Medical History: Reports: Hx Diabetes Mellitus Type 2 Renal/ Medical History: Denies: Hx Peritoneal Dialysis Musculoskeletal Medical History: Reports Hx Arthritis, Reports Hx Fibromyalgia Past Surgical History: Reports: Hx Breast Surgery, Hx Orthopedic Surgery. Denies: Hx Hysterectomy - Immunizations Hx Diphtheria, Pertussis, Tetanus Vaccination: No Review of Systems - Review of Systems Constitutional: See HPI, Malaise, Weakness EENT: No symptoms reported Cardiovascular: See HPI, Dizziness, Lightheaded Respiratory: No symptoms reported Gastrointestinal: No symptoms reported Genitourinary: No symptoms reported Female Genitourinary: No symptoms reported Musculoskeletal: No symptoms reported Skin: No symptoms reported Hematologic/Lymphatic: No symptoms reported Neurological/Psychological: See HPI, Weakness Physical Exam - Vital signs Vitals: Temp Pulse Resp BP Pulse Ox 98.7 F 85 18 101/59 L 98 05/19/19 15:01 05/19/19 15:01 05/19/19 15:01 05/19/19 15:01 05/19/19 15:01 Interpretation: Hypotensive - HEENT Head: Normocephalic Eyes: Normal Conjunctiva: Normal Cornea: Normal Extraocular movements intact: Yes Eyelashes: Normal Pupils: PERRL Tympanic membrane: Bulging - On the right TM and serous fluid but left TM within normal limits Pharynx: Normal Neck: Normal - Respiratory Respiratory status: No respiratory distress Chest status: Nontender Breath sounds: Normal Chest palpation: Normal - Cardiovascular Rhythm: Regular Heart sounds: Normal auscultation Murmur: No Friction rub: No Diamante's crunch: No - [place] - Abdominal Inspection: Normal Distension: No distension Bowel sounds: Normal Tenderness: Nontender Organomegaly: No organomegaly - Back Back: Normal - Extremities General upper extremity: Normal inspection General lower extremity: Normal inspection - Neurological Neuro grossly intact: Yes Cognition: Normal Orientation: AAOx4 Mark Anthony Coma Scale Eye Opening: Spontaneous Conway Coma Scale Verbal: Oriented Conway Coma Scale Motor: Obeys Commands Conway Coma Scale Total: 15 Speech: Normal Cranial nerves: Normal Cerebellar coordination: Normal Motor strength normal: LUE, RUE, LLE, RLE - Psychological Associated symptoms: Normal affect - Skin Skin Temperature: Warm Skin Moisture: Dry Course - Vital Signs Vital signs: Temp Pulse Resp BP Pulse Ox 98.7 F 74 20 112/64 100 05/19/19 15:01 05/19/19 18:59 05/19/19 19:00 05/19/19 18:59 05/19/19 19:00 - Laboratory Result Diagrams: 05/19/19 15:50 05/19/19 15:50 Laboratory results interpreted by me: 05/19/19 05/19/19 15:50 15:50 RDW 14.9 H Potassium 3.3 L Chloride 95 L Carbon Dioxide 35 H BUN 22 H Creatinine 1.50 H Est GFR ( Amer) 44 L Est GFR (MDRD) Non-Af 36 L Glucose 163 H - Diagnostic Test Radiology reviewed: Reports reviewed - EKG Interpretation by Me EKG shows normal: Sinus rhythm Critical Care Note - Critical Care Note Total time excluding time spent on procedures (mins): 90 Discharge - Discharge Clinical Impression: Vertigo Heat exhaustion Qualifiers: Encounter type: initial encounter Qualified Code(s): T67.5XXA - Heat exhaustion, unspecified, initial encounter Hypotension Qualifiers: Hypotension type: hypotension due to drug Qualified Code(s): I95.2 - Hypotension due to drugs Condition: Good Disposition: HOME, SELF-CARE Additional Instructions: Follow-up with personal doctor return to ER as needed take medicines as directed encourage fluids and off work as directed Prescriptions: Meclizine HCl [Antivert 25 mg Tablet] 25 mg PO TID PRN #21 tablet PRN Reason: Forms: Return to Work Referrals: JERILYN BANEGAS MD [Primary Care Provider] - Follow up as needed
--- NOTE | 2019-05-19 19:05 | EKG REPORT ---
SEVERITY:- ABNORMAL ECG - SINUS RHYTHM PROBABLE LEFT ATRIAL ABNORMALITY LEFT VENTRICULAR HYPERTROPHY : Confirmed by: Miguel Ángel Rhoades 19-May-2019 19:04:31
[2019-05-19 19:16] VITALS: BP 104/63
== END 2019-05-19 19:54 | disposition home or self-care (01) ==
LOC: ER 14:46
DX: T67.5XXA Heat exhaustion, unspecified, initial encounter (principal); X30.XXXA Exposure to excessive natural heat, initial encounter; I95.2 Hypotension due to drugs; T50.905A Adverse effect of unspecified drugs, medicaments and biological substances, initial encounter; I11.0 Hypertensive heart disease with heart failure; I50.9 Heart failure, unspecified; R06.02 Shortness of breath; R42 Dizziness and giddiness; R53.1 Weakness; E11.9 Type 2 diabetes mellitus without complications; Z79.899 Other long term (current) drug therapy; Z79.84 Long term (current) use of oral hypoglycemic drugs; Z79.82 Long term (current) use of aspirin
CPT/HCPCS: 93005; 99291; 99292; 96360; 36415; 82553; 82550; 83735; 85025; 85610; 80053; 84484; 85379; 83880; 71045; 93010; J7040

== ENCOUNTER 2019-10-28 18:24 | Emergency (ER) | payer BC ==
[2019-10-28 19:11] LABS: ABSOLUTE BASOPHILS # (AUTO) 0.1 10^3/uL (0.0-0.2); ABSOLUTE EOSINOPHILS # (AUTO) 0.3 10^3/uL (0.0-0.6); ABSOLUTE LYMPHOCYTES (AUTO) 2.7 10^3/uL (0.5-4.7); ABSOLUTE MONOCYTES (AUTO) 0.6 10^3/uL (0.1-1.4); ABSOLUTE NEUT (AUTO) 4.5 10^3/uL (1.7-8.2); BASOPHILS % (AUTO) 0.6 % (0-2); EOSINOPHILS % (AUTO) 3.9 % (0-6); HEMOGLOBIN 11.1 g/dL (12.0-15.5); LYMPHOCYTES % (AUTO) 32.7 % (13-45); MEAN CORPUSCULAR HEMOGLOBIN 32.7 pg (27.0-33.4); MEAN CORPUSCULAR HGB CONC 34.7 g/dL (32.0-36.0); MEAN CORPUSCULAR VOLUME 94 fl (80-97); MONOCYTES % (AUTO) 7.5 % (3-13); PLATELET COUNT 302 10^3/uL (150-450); RED CELL DISTRIBUTION WIDTH 14.4 % (11.5-14.0); SEGMENTED NEUTROPHILS % (AUTO) 55.3 % (42-78); TOTAL CELLS COUNTED % (AUTO) 100 %; WHITE BLOOD COUNT 8.2 10^3/uL (4.0-10.5)
[2019-10-28 19:24] LABS: ALBUMIN 3.7 g/dL (3.5-5.0); ALKALINE PHOSPHATASE 61 U/L (38-126); ANION GAP 9 (5-19); ASPARTATE AMINO TRANSFERASE 45 U/L (14-36); BILIRUBIN,DIRECT 0.2 mg/dL (0.0-0.4); BILIRUBIN,TOTAL 0.8 mg/dL (0.2-1.3); BLOOD UREA NITROGEN 15 mg/dL (7-20); CALCIUM 8.7 mg/dL (8.4-10.2); CARBON DIOXIDE 27 mmol/L (22-30); CHLORIDE 108 mmol/L (98-107); CREATINE KINASE 126 U/L (30-135); GLUCOSE 140 mg/dL (75-110); POTASSIUM 3.5 mmol/L (3.6-5.0); TOTAL PROTEIN 6.8 g/dL (6.3-8.2)
[2019-10-28 19:38] LABS: CREATINE KINASE MB 1.11 ng/mL (<4.55)
[2019-10-28 19:40] LABS: TROPONIN I < 0.012 ng/mL
[2019-10-28] MEDS ORDERED: FUROSEMIDE INJ/PF 20 MG/2 ML SDV IV ONE (20:43)
--- NOTE | 2019-10-28 23:43 | ER Document Report ---
ED Respiratory Problem - General Chief Complaint: Shortness Of Breath Stated Complaint: SOB/WEAKNESS/NAUSEA/VOMITING/DIAHERRA Time Seen by Provider: 10/28/19 20:34 Primary Care Provider: JERILYN BANEGAS MD [Primary Care Provider] - Follow up as needed Notes: 54-year-old woman presents to the emergency department with a complaint of chest heaviness and shortness of breath. She has a known history of CHF. She has been taking her usual medications and states that she does feel like she is got fluid buildup. She states that the symptoms have gradually worsened over the past few days. She denies palpitations, dizziness, syncope, or respiratory distress. TRAVEL OUTSIDE OF THE [place] IN LAST 30 DAYS: No - Related Data Allergies/Adverse Reactions: No Known Allergies Allergy (Verified 05/19/19 18:16) Past Medical History - Social History Smoking Status: Former Smoker Family History: Hypertension Patient has homicidal ideation: No - Past Medical History Cardiac Medical History: Reports: Hx Congestive Heart Failure, Hx Hypertension Denies: Hx Coronary Artery Disease, Hx Heart Attack Pulmonary Medical History: Denies: Hx Asthma, Hx Bronchitis, Hx COPD, Hx Pneumonia Neurological Medical History: Denies: Hx Cerebrovascular Accident, Hx Seizures Endocrine Medical History: Reports: Hx Diabetes Mellitus Type 2 Renal/ Medical History: Denies: Hx Peritoneal Dialysis Musculoskeletal Medical History: Reports Hx Arthritis, Reports Hx Fibromyalgia Past Surgical History: Reports: Hx Breast Surgery, Hx Orthopedic Surgery. Den ies: Hx Hysterectomy - Immunizations Hx Diphtheria, Pertussis, Tetanus Vaccination: No Review of Systems - Review of Systems Notes: Constitutional: Negative for fever. HENT: Negative for sore throat. Eyes: Negative for visual changes. Cardiovascular: + Chest heaviness Respiratory: + Shortness of breath Gastrointestinal: Negative for abdominal pain, vomiting or diarrhea. Genitourinary: Negative for dysuria. Musculoskeletal: Negative for back pain. Skin: Negative for rash. Neurological: Negative for headaches, weakness or numbness. 10 point ROS negative except as marked above and in HPI. Physical Exam - Vital signs Vitals: Temp Pulse Resp BP Pulse Ox 98.8 F 60 24 H 167/72 H 97 10/28/19 18:36 10/28/19 18:36 10/28/19 18:36 10/28/19 18:36 10/28/19 18:36 - Notes Notes: PHYSICAL EXAMINATION: Physical Exam: General: Well-nourished well-developed 54-year-old female in no acute distress HEENT: NC/AT, pupils equal round and reactive to light, MM moist,nares clear, oropharynx clear, airway patent Neck: supple, no adenopathy, no masses. Good range of motion Lungs: clear, no wheezing, no rales no rhonchi CVS: Regular rate and rhythm no murmur gallop or rub Abdomen: Soft, active, nontender, no masses, no hepatosplenomegaly Ext: No edema, clubbing or cyanosis. Neuro: Alert and responsive, moving all 4 extremities on command, cranial nerves intact, no focal findings Skin: Intact no open lesions, no rash PSYCH: Normal mood, normal affect. Course - Re-evaluation Re-evalutation: 10/28/19 23:39 The patient had a normal chest x-ray, EKG does not show hyperacute changes. Labs are also normal. She is given Lasix 20 mg IV she has had 2 trips to the bathroom with good results. Patient states she is feeling some better. Was sleeping when I evaluated her 0. He has been discharged home to continue her usual medications and to follow-up with her primary care doctor as needed. Patient is in agreement with this plan. - Vital Signs Vital signs: Temp Pulse Resp BP Pulse Ox 98.8 F 60 27 H 174/83 H 99 10/28/19 18:36 10/28/19 18:36 10/28/19 22:00 10/28/19 21:20 10/28/19 22:00 - Laboratory Result Diagrams: 10/28/19 18:44 10/28/19 18:44 Laboratory results interpreted by me: 10/28/19 10/28/19 18:44 18:44 RBC 3.40 L Hgb 11.1 L Hct 32.0 L RDW 14.4 H Potassium 3.5 L Chloride 108 H Est GFR (MDRD) Non-Af 50 L Glucose 140 H AST 45 H ALT 51 H 10/28/19 23:40 I have reviewed laboratory data and used this information for the treatment decisions regarding the patient. Discharge - Discharge Clinical Impression: Chest heaviness, Pulmonary vascular congestion Condition: Good Disposition: HOME, SELF-CARE Instructions: Congestive Heart Failure ([facility]) Additional Instructions: You were seen in the emergency department tonight with chest heaviness and vascular congestion on chest x-ray. Given IV diuretic medications with some improvement. Please continue your fluid medications at home. Please follow-up with your primary care doctor on Thursday for an adjustment in medications if needed. If your symptoms are worsening or if you have other concerns you may return to the emergency department for further evaluation and treatment HOME CARE INSTRUCTIONS & INFORMATION: Thank you for choosing us for your medical needs. We hope you're satisfied with the care you received. After you leave, you must properly care for your problem and, at the same time, observe its progress. Any condition can change. Some illnesses can change rapidly over hours or days. If your condition worsens, return to the Emergency Department or see your physician promptly. ABOUT YOUR X-RAYS AND EKG'S: If you had an EKG or X-rays taken, they have been read by the Emergency Physician. The X-rays and EKG's will also be read by a Radiologist or Cosmetics Machine Operator within 24 hours. If discrepancies are noted, you will be notified by telephone. Please be certain the ED has a correct telephone number & address where you can be reached. Also, realize that some fractures or abnormalities do not show up on initial X-rays. If your symptoms continue, see your physician. ABOUT YOUR LABORATORY TEST: If you had laboratory tests, the results have been reviewed by the Emergency Physician. Some test results (for example cultures) may not be available for several days. You will be contacted if any test result shows you need additional treatment. Please be certain the ED has a correct telephone number and address where you can be reached. ABOUT YOUR MEDICATIONS: You will receive instructions on how to take your medicine on the prescription label you receive. Additional information may be provided by the Pharmacy. If you have questions afterwards, call the ED for clarification or further instructions. Some prescribed medications may cause drowsiness. Do not perform tasks such as driving a car or operating machinery without consulting your Pharmacist. If you feel you need a refill of pain medication, your condition will need re-evaluation. Please do not call for a refill of any medication. ABOUT YOUR SIGNATURE: Signature of this document acknowledges to followin. Understanding that you received emergency treatment and that you may be released before al medical problems are known or treated. Please be certain the ED has a correct phone number & address where you can be reached. 2. Acknowledgement that you will arrange for follow-up care as recommended. 3. Authorization for the Emergency Physician to provide information to your follow-up Physician in order to maximize your care. AT ANY TIME, IF YOUR SYMPTOMS CHANGE SIGNIFICANTLY OR WORSEN OR YOU DEVELOP NEW SYMPTOMS, RETURN TO THE EMERGENCY DEPARTMENT IMMEDIATELY FOR RE-EVALUATION. OUR GOAL IS TO PROVIDE EXCELLENT MEDICAL CARE! WE HOPE THAT WE HAVE MET YOUR EXPECTATIONS DURING YOUR EMERGENCY DEPARTMENT VISIT AND THAT YOU FEEL YOU HAVE RECEIVED EXCELLENT CARE! Referrals: JERILYN BANEGAS MD [Primary Care Provider] - Follow up as needed
[2019-10-29 00:03] VITALS: BP 171/88
--- NOTE | 2019-10-29 14:15 | EKG REPORT ---
SEVERITY:- NORMAL ECG - SINUS RHYTHM : Confirmed by: Miguel Ángel Rhoades 29-Oct-2019 14:14:43
--- NOTE | 2019-10-30 12:43 | RADIOLOGY REPORT (SQ) ---
EXAM DESCRIPTION: CHEST SINGLE VIEW IMAGES COMPLETED DATE/TIME: 10/28/2019 7:42 pm REASON FOR STUDY: SOB COMPARISON: 05/19/2019. FINDINGS: Note: Study officially presented for interpretation 10/30/2019. One view AP portable upright image. Study is normal. Lungs are clear. Normal cardiomediastinal georgina houette. Intact bones. TECHNICAL DOCUMENTATION: JOB ID: [id number] Reading location - IP/workstation name: [email or web address]
== END 2019-10-29 00:08 | disposition home or self-care (01) ==
LOC: ER 18:24
DX: R06.02 Shortness of breath (principal); R09.89 Other specified symptoms and signs involving the circulatory and respiratory systems; Z79.899 Other long term (current) drug therapy; Z87.891 Personal history of nicotine dependence; I50.9 Heart failure, unspecified; I11.0 Hypertensive heart disease with heart failure; E11.9 Type 2 diabetes mellitus without complications
CPT/HCPCS: 93005; 99285; 96374; 36415; 82553; 82550; 85025; 80053; 84484; 71045; 93010; J1940